=== PATIENT | female | born 1960 | race African-American/Black ===

== ENCOUNTER 2016-05-06 17:22 | Emergency (ER) | payer MEDICAID ==
[~2016-05-06] VITALS: Ht 170.2 cm; Wt 84.0 kg
[2016-05-06] MEDS ORDERED: KETOROLAC 60MG/2ML VIAL IM ONE (19:45)
[2016-05-06 19:52] VITALS: BP 142/91
[2016-05-06 20:01] LABS: CLARITY URINE CLEAR (CLEAR); COLOR URINE YELLOW (YELLOW); GLUCOSE URINE NEGATIVE (NEGATIVE); KETONES URINE NEGATIVE (NEGATIVE); LEUKOCYTE ESTERASE URINE NEGATIVE (NEGATIVE); NITRITE URINE NEGATIVE (NEGATIVE); OCCULT BLOOD URINE 2+ (NEGATIVE); PH URINE 5.5 (4.5-8.0); PROTEIN URINE NEGATIVE (NEGATIVE); SPECIFIC GRAVITY URINE 1.029 (1.005-1.030); UROBILINOGEN URINE 0.2 E.U./dL (0.2-1.0)
[2016-05-06 20:16] LABS: BACTERIA URINE 1+; RBC URINE 0-2 /hpf (0-2); SQUAMOUS EPITHELIAL CELL URINE 1+ /lpf (RARE/1+); WBC URINE 0-2 /hpf (0-2)
== END 2016-05-06 20:45 | disposition home or self-care (01) ==
LOC: ER 19:44
DX: M54.5 Low back pain (principal); I10 Essential (primary) hypertension; R10.9 Unspecified abdominal pain
CPT/HCPCS: 81001; 96372; 99283; J1885

== ENCOUNTER 2019-09-07 19:59 | Inpatient (IN) | payer MEDICARE, MEDICAID ==
[~2019-09-07] VITALS: Ht 170.2 cm; Wt 97.1 kg
[2019-09-07] MEDS ORDERED: SODIUM CHLORIDE 0.9% 1,000 ML IV ONE (20:30)
[2019-09-07] MEDS ORDERED: ACETAMINOPHEN 325MG TABLET PO ONE (21:00)
[2019-09-07 21:18] LABS: BASOPHILS % 0.4 % (0.0-2.0); HEMATOCRIT. 41.3 % (36.0-48.0); HEMOGLOBIN. 14.4 g/dL (12.0-16.0); LYMPHOCYTES % 20.4 % (20.0-50.0); MEAN CORPUSCULAR HEMOGLOBIN 31.7 pg (28.0-32.0); MEAN PLATELET VOLUME 8.8 fl (7.4-10.4); MONOCYTES % 10.9 % (2.0-8.0); NEUTROPHILS % 68.3 % (40.0-76.0); PLATELET 215 x1000/uL (130-400); RED BLOOD CELL COUNT 4.54 mill/uL (4.2-5.4); RED CELL DISTRIBUTION WIDTH 13.4 % (11.6-14.6)
[2019-09-07 21:26] LABS: D-DIMER 0.55 mg/L FEU (<0.50); PROTHROMBIN TIME 10.5 sec (9.6-11.0)
[2019-09-07] MEDS ORDERED: PIPERACILLIN/TAZ 3.375G PREMIX 50 ML IV ONE (21:30)
[2019-09-07 21:33] LABS: CHLORIDE 106 mEq/L (98-107)
[2019-09-08] MEDS ORDERED: QUET50TA21 PO (03:53)
[2019-09-08] MEDS ORDERED: RAMI10CA68 PO (03:53)
[2019-09-08] MEDS ORDERED: AMLO5TAB88 PO (03:53)
[2019-09-08] MEDS ORDERED: HYDR-4009 PO (03:53)
[2019-09-08] MEDS ORDERED: NAPR-681 PO (03:53)
[2019-09-08] MEDS ORDERED: OMEP20CA14 PO (03:53)
[2019-09-08 04:00] VITALS: BP 112/71
[2019-09-08] MEDS ORDERED: HYDROCODONE/ACETAMINOPHEN 10/325MG TABLET PO PRN (04:15)
[2019-09-08 08:00] VITALS: BP 89/55
[2019-09-08] MEDS: OMEPRAZOLE 20MG CAPSULE EXTENDED RELEASE PO SCH (08:24)
[2019-09-08] MEDS ORDERED: AMLODIPINE 5MG TABLET PO SCH (09:00)
[2019-09-08] MEDS ORDERED: DEXAMETHASONE 2MG TABLET PO SCH (09:00)
[2019-09-08] MEDS: AZITHROMYCIN 500 MG TABLET PO SCH (09:19)
[2019-09-08] MEDS: CEFTRIAXONE 1,000 MG in DEXTROSE 5% WATER 50 ML IV SCH (10:18)
[2019-09-08 12:00] VITALS: BP 114/79
[2019-09-08] MEDS: ACETAMINOPHEN 325MG TABLET PO PRN (13:48)
[2019-09-08] MEDS: BENZONATATE 100MG CAPSULE PO PRN (15:34)
[2019-09-08 15:54] LABS: BASOPHILS % 0.3 % (0.0-2.0); HEMATOCRIT. 37.5 % (36.0-48.0); HEMOGLOBIN. 13.1 g/dL (12.0-16.0); LYMPHOCYTES % 12.5 % (20.0-50.0); MEAN CORPUSCULAR HEMOGLOBIN 31.7 pg (28.0-32.0); MEAN PLATELET VOLUME 8.4 fl (7.4-10.4); NEUTROPHILS % 82.2 % (40.0-76.0); PLATELET 204 x1000/uL (130-400); RED BLOOD CELL COUNT 4.12 mill/uL (4.2-5.4); RED CELL DISTRIBUTION WIDTH 13.2 % (11.6-14.6)
[2019-09-08 16:00] VITALS: BP 113/77
[2019-09-08 16:05] LABS: CHLORIDE 109 mEq/L (98-107)
[2019-09-08] MEDS ORDERED: DEXAMETHASONE 4MG TABLET PO SCH (16:48)
[2019-09-08] MEDS: ENOXAPARIN 80MG/0.8ML SYR SUBCUT SCH (17:19)
[2019-09-08 18:18] LABS: CLARITY URINE CLEAR (CLEAR); COLOR URINE DARK YELLOW (YELLOW); KETONES URINE NEGATIVE (NEGATIVE); LEUKOCYTE ESTERASE URINE NEGATIVE (NEGATIVE); NITRITE URINE NEGATIVE (NEGATIVE); OCCULT BLOOD URINE TRACE (NEGATIVE); PH URINE 5.5 (4.5-8.0); PROTEIN URINE 2+ (NEGATIVE); SPECIFIC GRAVITY URINE 1.025 (1.005-1.030)
[2019-09-08 18:28] LABS: *AMPHETAMINES SCREEN URINE NEGATIVE (NEGATIVE); *BARBITURATES SCREEN URINE NEGATIVE (NEGATIVE); *BENZODIAZEPINES SCREEN URINE NEGATIVE (NEGATIVE); *COCAINE SCREEN URINE NEGATIVE (NEGATIVE); METHADONE URINE SCREEN NEGATIVE (NEGATIVE); OPIATES URINE SCREEN NEGATIVE (NEGATIVE); PHENCYCLIDINE URINE SCREEN NEGATIVE (NEGATIVE)
[2019-09-08 18:29] LABS: CANNABINOID URINE SCREEN NEGATIVE (NEGATIVE)
[2019-09-08 20:00] VITALS: BP 119/84
[2019-09-08] MEDS: QUETIAPINE FUMARATE 50MG TABLET PO SCH (20:57)
[2019-09-09] VITALS: BP 123/80
[2019-09-09 04:00] VITALS: BP 108/71
[2019-09-09] MEDS: ENOXAPARIN 80MG/0.8ML SYR SUBCUT SCH ×2 (06:14→18:17)
[2019-09-09 08:00] VITALS: BP 118/82
[2019-09-09] MEDS: OMEPRAZOLE 20MG CAPSULE EXTENDED RELEASE PO SCH (08:48)
[2019-09-09] MEDS: AZITHROMYCIN 500 MG TABLET PO SCH (08:49)
[2019-09-09] MEDS: DEXAMETHASONE 4MG TABLET PO SCH (08:49)
[2019-09-09] MEDS: BENZONATATE 100MG CAPSULE PO PRN (10:57)
[2019-09-09 12:00] VITALS: BP 130/86
[2019-09-09] MEDS: CEFTRIAXONE 1,000 MG in DEXTROSE 5% WATER 50 ML IV SCH (12:05)
[2019-09-09 20:00] VITALS: BP 134/87
[2019-09-09] MEDS: QUETIAPINE FUMARATE 50MG TABLET PO SCH (20:36)
[2019-09-10] VITALS: BP 125/86
[2019-09-10 04:00] VITALS: BP 120/74
[2019-09-10] MEDS: ENOXAPARIN 80MG/0.8ML SYR SUBCUT SCH ×2 (06:41→18:44)
[2019-09-10 08:00] VITALS: BP 126/85
[2019-09-10] MEDS: OMEPRAZOLE 20MG CAPSULE EXTENDED RELEASE PO SCH (08:25)
[2019-09-10] MEDS: AZITHROMYCIN 500 MG TABLET PO SCH (08:26)
[2019-09-10] MEDS: DEXAMETHASONE 4MG TABLET PO SCH (08:28)
[2019-09-10] MEDS: CEFTRIAXONE 1,000 MG in DEXTROSE 5% WATER 50 ML IV SCH (08:55)
[2019-09-10] MEDS: DIPHENHYDRAMINE 50MG CAPSULE PO PRN (09:39)
[2019-09-10 12:00] VITALS: BP 125/88
[2019-09-10 16:00] VITALS: BP 138/89
[2019-09-10 20:00] VITALS: BP 148/88
[2019-09-10] MEDS: QUETIAPINE FUMARATE 50MG TABLET PO SCH (20:09)
[2019-09-10 20:28] LABS: CHLORIDE 109 mEq/L (98-107)
[2019-09-10 20:40] LABS: BASOPHILS % 0.1 % (0.0-2.0); HEMATOCRIT. 37.2 % (36.0-48.0); LYMPHOCYTES % 7.1 % (20.0-50.0); MEAN CORPUSCULAR HEMOGLOBIN 31.8 pg (28.0-32.0); MEAN CORPUSCULAR VOLUME 91.1 fL (81.0-99.0); MEAN PLATELET VOLUME 8.5 fl (7.4-10.4); MONOCYTES % 8.2 % (2.0-8.0); NEUTROPHILS % 84.6 % (40.0-76.0); PLATELET 255 x1000/uL (130-400); RED BLOOD CELL COUNT 4.08 mill/uL (4.2-5.4); RED CELL DISTRIBUTION WIDTH 13.4 % (11.6-14.6)
[2019-09-11] VITALS (7 sets, daily range): BP systolic 91–155; BP diastolic 67–98
[2019-09-11] MEDS: OMEPRAZOLE 20MG CAPSULE EXTENDED RELEASE PO SCH (06:41)
[2019-09-11] MEDS: ENOXAPARIN 80MG/0.8ML SYR SUBCUT SCH ×2 (06:41→17:04)
[2019-09-11] MEDS: CEFTRIAXONE 1,000 MG in DEXTROSE 5% WATER 50 ML IV SCH (08:30)
[2019-09-11] MEDS: AZITHROMYCIN 500 MG TABLET PO SCH (08:31)
[2019-09-11] MEDS: DEXAMETHASONE 4MG TABLET PO SCH (08:31)
[2019-09-11 12:47] LABS: BG CARBOXYHEMOGLOBIN 0.5 % (0.5-1.5); BG DEOXYHEMOGLOBIN 9.9 % (0.0-5.0); BG FRACTION INSPIRED OXYGEN 99.8; BG HCO3 ACT 24.2 mmol/L (22.0-26.0); BG METHEMOGLOBIN 0.3 % (0.0-1.5); BG OXYHEMOGLOBIN 89.3 % (94.0-97.0); BG PCO2 38.3 mmHg (35.0-45.0); BG PH 7.419 (7.350-7.450); BG PO2 61.6 mmHg (75.0-100.0); BG SAMPLE SITE RIGHT BRACHIAL; BG TOTAL HEMOGLOBIN 14.2 g/dL (12.0-18.0); BG VENT MODE MASK - NRB
[2019-09-11] MEDS ORDERED: REMDESIVIR 200 MG in SODIUM CHLORIDE 0.9% 250 ML IV NR (14:00)
[2019-09-11] MEDS ORDERED: CLONIDINE 0.1MG TABLET PO PRN (17:00)
[2019-09-11] MEDS: AMLODIPINE 10MG TABLET PO SCH (17:04)
[2019-09-11] MEDS: QUETIAPINE FUMARATE 50MG TABLET PO SCH (21:44)
[2019-09-12] VITALS: BP 125/82
[2019-09-12 04:00] VITALS: BP 123/78
[2019-09-12] MEDS: ENOXAPARIN 80MG/0.8ML SYR SUBCUT SCH ×2 (05:31→17:27)
[2019-09-12 08:00] VITALS: BP 134/91
[2019-09-12] MEDS: AZITHROMYCIN 500 MG TABLET PO SCH (08:30)
[2019-09-12] MEDS: FAMOTIDINE 20MG TABLET PO SCH ×2 (08:31→17:26)
[2019-09-12] MEDS: DEXAMETHASONE 4MG TABLET PO SCH (08:31)
[2019-09-12] MEDS: AMLODIPINE 10MG TABLET PO SCH (08:31)
[2019-09-12] MEDS: CEFTRIAXONE 1,000 MG in DEXTROSE 5% WATER 50 ML IV SCH (08:31)
[2019-09-12 12:00] VITALS: BP 111/84
[2019-09-12] MEDS: REMDESIVIR 100 MG in SODIUM CHLORIDE 0.9% 250 ML IV SCH (13:52)
[2019-09-12] MEDS: ALBUTEROL 6.7GM HFA INHALER ORI SCH ×2 (13:52→17:28)
[2019-09-12 16:00] VITALS: BP 133/94
[2019-09-12] MEDS: QUETIAPINE FUMARATE 50MG TABLET PO SCH (20:26)
[2019-09-12 20:42] VITALS: BP 130/87
[2019-09-13] VITALS (23 sets, daily range): BP systolic 111–164; BP diastolic 70–97
[2019-09-13] MEDS: ALBUTEROL 6.7GM HFA INHALER ORI SCH ×2 (00:08→05:35)
[2019-09-13] MEDS: ENOXAPARIN 80MG/0.8ML SYR SUBCUT SCH ×2 (05:34→17:17)
[2019-09-13] MEDS: FAMOTIDINE 20MG TABLET PO SCH ×2 (07:40→17:16)
[2019-09-13] MEDS: CEFTRIAXONE 1,000 MG in DEXTROSE 5% WATER 50 ML IV SCH (08:30)
[2019-09-13] MEDS: DEXAMETHASONE 4MG TABLET PO SCH (08:55)
[2019-09-13] MEDS: AZITHROMYCIN 500 MG TABLET PO SCH (08:56)
[2019-09-13] MEDS: AMLODIPINE 10MG TABLET PO SCH (08:56)
[2019-09-13 10:01] LABS: BG BASE EXCESS 0.4 mmol/L (-2.0-2.0); BG CARBOXYHEMOGLOBIN 0.7 % (0.5-1.5); BG DEOXYHEMOGLOBIN 17.3 % (0.0-5.0); BG FRACTION INSPIRED OXYGEN 99.8; BG HCO3 ACT 23.6 mmol/L (22.0-26.0); BG METHEMOGLOBIN 0.3 % (0.0-1.5); BG OXYGEN SATURATION 82.5 % (92.0-98.5); BG OXYHEMOGLOBIN 81.7 % (94.0-97.0); BG PO2 46.2 mmHg (75.0-100.0); BG SAMPLE SITE RIGHT RADIAL; BG TOTAL HEMOGLOBIN 14.6 g/dL (12.0-18.0); BG VENT MODE MASK - NRB
[2019-09-13] MEDS ORDERED: ALBUTEROL 6.7GM HFA INHALER ORI SCH (12:00)
[2019-09-13] MEDS: REMDESIVIR 100 MG in SODIUM CHLORIDE 0.9% 250 ML IV SCH (15:04)
[2019-09-13] MEDS: QUETIAPINE FUMARATE 50MG TABLET PO SCH (20:15)
[2019-09-13] MEDS: BENZONATATE 100MG CAPSULE PO PRN (21:41)
[2019-09-14] VITALS (42 sets, daily range): BP systolic 100–141; BP diastolic 63–96
[2019-09-14] MEDS: ENOXAPARIN 80MG/0.8ML SYR SUBCUT SCH ×2 (05:35→17:01)
[2019-09-14] MEDS: BENZONATATE 100MG CAPSULE PO PRN (05:35)
[2019-09-14] MEDS: FAMOTIDINE 20MG TABLET PO SCH ×2 (05:35→17:01)
[2019-09-14] MEDS: DEXAMETHASONE 4MG TABLET PO SCH (08:00)
[2019-09-14] MEDS: AMLODIPINE 10MG TABLET PO SCH (08:00)
[2019-09-14] MEDS ORDERED: FUROSEMIDE 40MG/4ML VIAL IVP SCH (13:30)
[2019-09-14] MEDS: REMDESIVIR 100 MG in SODIUM CHLORIDE 0.9% 250 ML IV SCH (14:08)
[2019-09-14] MEDS: QUETIAPINE FUMARATE 50MG TABLET PO SCH (21:30)
[2019-09-15] VITALS (37 sets, daily range): BP systolic 86–138; BP diastolic 34–81
[2019-09-15] MEDS: ACETAMINOPHEN 325MG TABLET PO PRN (01:43)
[2019-09-15] MEDS: ENOXAPARIN 80MG/0.8ML SYR SUBCUT SCH ×2 (06:44→16:36)
[2019-09-15] MEDS: FAMOTIDINE 20MG TABLET PO SCH ×2 (06:44→16:37)
[2019-09-15] MEDS: DEXAMETHASONE 4MG TABLET PO SCH (09:30)
[2019-09-15] MEDS: AMLODIPINE 10MG TABLET PO SCH (09:30)
[2019-09-15 09:36] LABS: BG BASE EXCESS 3.3 mmol/L (-2.0-2.0); BG CARBOXYHEMOGLOBIN 0.4 % (0.5-1.5); BG DEOXYHEMOGLOBIN 14.4 % (0.0-5.0); BG FRACTION INSPIRED OXYGEN 100; BG METHEMOGLOBIN 0.3 % (0.0-1.5); BG OXYGEN SATURATION 85.5 % (92.0-98.5); BG OXYHEMOGLOBIN 84.9 % (94.0-97.0); BG PCO2 38.1 mmHg (35.0-45.0); BG PH 7.468 (7.350-7.450); BG PO2 49.6 mmHg (75.0-100.0); BG SAMPLE SITE RIGHT RADIAL; BG VENT MODE MASK - NRB
[2019-09-15] MEDS ORDERED: FUROSEMIDE 40MG/4ML VIAL IVP SCH (10:45)
[2019-09-15] MEDS: REMDESIVIR 100 MG in SODIUM CHLORIDE 0.9% 250 ML IV SCH (13:05)
[2019-09-15 20:26] LABS: CHLORIDE 98 mEq/L (98-107)
[2019-09-15 20:33] LABS: HEMATOCRIT. 43.2 % (36.0-48.0); HEMOGLOBIN. 14.5 g/dL (12.0-16.0); MEAN CORPUSCULAR VOLUME 92.7 fL (81.0-99.0); MEAN PLATELET VOLUME 8.1 fl (7.4-10.4); PLATELET 583 x1000/uL (130-400); RED BLOOD CELL COUNT 4.66 mill/uL (4.2-5.4); RED CELL DISTRIBUTION WIDTH 12.8 % (11.6-14.6)
[2019-09-15] MEDS: QUETIAPINE FUMARATE 50MG TABLET PO SCH (20:33)
[2019-09-15 22:57] LABS: PLATELET ESTIMATE INCREASED
[2019-09-16] VITALS (72 sets, daily range): BP systolic 89–156; BP diastolic 51–93
[2019-09-16] MEDS: FAMOTIDINE 20MG TABLET PO SCH ×2 (06:12→16:00)
[2019-09-16] MEDS: ENOXAPARIN 80MG/0.8ML SYR SUBCUT SCH ×2 (06:12→17:11)
[2019-09-16] MEDS: BENZONATATE 100MG CAPSULE PO PRN ×3 (06:14→20:52)
[2019-09-16] MEDS: DEXAMETHASONE 4MG TABLET PO SCH (08:56)
[2019-09-16] MEDS: AMLODIPINE 10MG TABLET PO SCH (08:56)
[2019-09-16 09:05] LABS: BG BASE EXCESS 7.9 mmol/L (-2.0-2.0); BG CARBOXYHEMOGLOBIN 0.9 % (0.5-1.5); BG DEOXYHEMOGLOBIN 15.7 % (0.0-5.0); BG FRACTION INSPIRED OXYGEN 100; BG HCO3 ACT 32.8 mmol/L (22.0-26.0); BG METHEMOGLOBIN 0.4 % (0.0-1.5); BG OXYGEN SATURATION 84.1 % (92.0-98.5); BG PCO2 46.5 mmHg (35.0-45.0); BG PH 7.466 (7.350-7.450); BG PO2 48.1 mmHg (75.0-100.0); BG SAMPLE SITE RIGHT RADIAL; BG VENT MODE MASK - NRB
[2019-09-16] MEDS ORDERED: DEXTROSE 50% WATER 50ML SYRINGE IV PRN (10:00)
[2019-09-16] MEDS: BLOOD SUGAR DIAGNOSTIC STRIP TEST SCH ×3 (11:30→20:53)
[2019-09-16] MEDS: INSULIN LISPRO 100 UNITS/ML SUBCUT SCH ×3 (14:26→20:52)
[2019-09-16] MEDS: QUETIAPINE FUMARATE 50MG TABLET PO SCH (20:52)
[2019-09-17] VITALS (39 sets, daily range): BP systolic 100–155; BP diastolic 56–109
[2019-09-17] MEDS: DIPHENHYDRAMINE 50MG CAPSULE PO PRN (00:15)
[2019-09-17 04:57] LABS: HEMATOCRIT. 41.1 % (36.0-48.0); HEMOGLOBIN. 13.8 g/dL (12.0-16.0); MEAN CORPUSCULAR HEMOGLOBIN 30.5 pg (28.0-32.0); PLATELET 503 x1000/uL (130-400); RED BLOOD CELL COUNT 4.51 mill/uL (4.2-5.4); RED CELL DISTRIBUTION WIDTH 12.9 % (11.6-14.6)
[2019-09-17 05:10] LABS: CHLORIDE 102 mEq/L (98-107)
[2019-09-17] MEDS: BLOOD SUGAR DIAGNOSTIC STRIP TEST SCH ×4 (05:55→21:32)
[2019-09-17] MEDS: ENOXAPARIN 80MG/0.8ML SYR SUBCUT SCH (06:05)
[2019-09-17] MEDS: BENZONATATE 100MG CAPSULE PO PRN (06:05)
[2019-09-17] MEDS: FAMOTIDINE 20MG TABLET PO SCH ×2 (06:07→16:21)
[2019-09-17] MEDS: DOCUSATE SODIUM 100MG CAPSULE PO SCH ×2 (08:14→16:21)
[2019-09-17] MEDS: AMLODIPINE 10MG TABLET PO SCH (08:14)
[2019-09-17] MEDS: DEXAMETHASONE 4MG TABLET PO SCH (08:15)
[2019-09-17] MEDS: INSULIN LISPRO 100 UNITS/ML SUBCUT SCH ×4 (08:18→21:33)
[2019-09-17 09:37] LABS: PLATELET ESTIMATE INCREASED
[2019-09-17 10:32] LABS: BG BASE EXCESS 2.1 mmol/L (-2.0-2.0); BG CARBOXYHEMOGLOBIN 0.9 % (0.5-1.5); BG DEOXYHEMOGLOBIN 19.2 % (0.0-5.0); BG FRACTION INSPIRED OXYGEN 100; BG HCO3 ACT 25.5 mmol/L (22.0-26.0); BG METHEMOGLOBIN 0.2 % (0.0-1.5); BG OXYGEN SATURATION 80.6 % (92.0-98.5); BG OXYHEMOGLOBIN 79.7 % (94.0-97.0); BG PCO2 36.3 mmHg (35.0-45.0); BG PH 7.465 (7.350-7.450); BG PO2 45.2 mmHg (75.0-100.0); BG SAMPLE SITE RIGHT RADIAL; BG VENT MODE MASK - NRB
[2019-09-17] MEDS ORDERED: INSULIN GLARGINE UD 100 UNITS/ML SYR SUBCUT NR (14:00)
[2019-09-17] MEDS: ENOXAPARIN 100MG/ML SYR SUBCUT SCH (17:03)
[2019-09-17] MEDS: QUETIAPINE FUMARATE 50MG TABLET PO SCH (21:32)
[2019-09-17] MEDS ORDERED: INSULIN GLARGINE UD 100 UNITS/ML SYR SUBCUT SCH (22:00)
[2019-09-18] VITALS (77 sets, daily range): BP systolic 53–154; BP diastolic 32–114
[2019-09-18] MEDS: BENZONATATE 100MG CAPSULE PO PRN (02:20)
[2019-09-18] MEDS: ENOXAPARIN 100MG/ML SYR SUBCUT SCH ×2 (05:47→17:38)
[2019-09-18] MEDS: INSULIN LISPRO 100 UNITS/ML SUBCUT SCH ×4 (05:47→20:38)
[2019-09-18] MEDS: BLOOD SUGAR DIAGNOSTIC STRIP TEST SCH ×4 (05:47→20:37)
[2019-09-18] MEDS: FAMOTIDINE 20MG TABLET PO SCH ×2 (05:47→16:04)
[2019-09-18] MEDS: DEXAMETHASONE 4MG/ML 1ML VIAL IV SCH (08:32)
[2019-09-18] MEDS: DOCUSATE SODIUM 100MG CAPSULE PO SCH ×2 (08:32→16:34)
[2019-09-18] MEDS: AMLODIPINE 10MG TABLET PO SCH (08:33)
[2019-09-18 09:59] LABS: BG BASE EXCESS 6.1 mmol/L (-2.0-2.0); BG CARBOXYHEMOGLOBIN 0.6 % (0.5-1.5); BG DEOXYHEMOGLOBIN 26.3 % (0.0-5.0); BG FRACTION INSPIRED OXYGEN 100; BG HCO3 ACT 30.4 mmol/L (22.0-26.0); BG METHEMOGLOBIN 0.3 % (0.0-1.5); BG OXYGEN SATURATION 73.5 % (92.0-98.5); BG OXYHEMOGLOBIN 72.8 % (94.0-97.0); BG PCO2 42.7 mmHg (35.0-45.0); BG PH 7.471 (7.350-7.450); BG SAMPLE SITE RIGHT RADIAL; BG TOTAL HEMOGLOBIN 15.9 g/dL (12.0-18.0); BG VENT MODE MASK - NRB
[2019-09-18] MEDS: PROPOFOL 10MG/ML 100ML 100 ML IV PRN ×3 (11:10→21:00)
[2019-09-18] MEDS ORDERED: DILTIAZEM HCL 30MG TABLET PO NR (11:45)
[2019-09-18 12:08] LABS: BG BASE EXCESS 1.9 mmol/L (-2.0-2.0); BG CARBOXYHEMOGLOBIN 0.7 % (0.5-1.5); BG DEOXYHEMOGLOBIN 5.7 % (0.0-5.0); BG FRACTION INSPIRED OXYGEN 100; BG HCO3 ACT 27.9 mmol/L (22.0-26.0); BG METHEMOGLOBIN 0.3 % (0.0-1.5); BG OXYGEN SATURATION 94.2 % (92.0-98.5); BG OXYHEMOGLOBIN 93.3 % (94.0-97.0); BG PCO2 49.1 mmHg (35.0-45.0); BG PH 7.373 (7.350-7.450); BG PO2 78.7 mmHg (75.0-100.0); BG SAMPLE SITE RIGHT RADIAL; BG TIDAL VOLUME(mL) 500 mL; BG TOTAL HEMOGLOBIN 14.9 g/dL (12.0-18.0); BG VENT MODE VENT- PRVC; BG VENT RATE 20 set
[2019-09-18] MEDS: INSULIN GLARGINE UD 100 UNITS/ML SYR SUBCUT SCH ×2 (12:33→22:15)
[2019-09-18] MEDS: IPRATROPIUM/ALBUTEROL 0.5-3(2.5)MG/3ML NEB HHN SCH ×2 (16:25→20:55)
[2019-09-18] MEDS: DILTIAZEM HCL 30MG TABLET PO SCH ×2 (17:38→23:39)
[2019-09-18] MEDS: QUETIAPINE FUMARATE 50MG TABLET PO SCH (20:37)
[2019-09-18] MEDS: PHENYLEPHRINE 20 MG in DEXT 5% WATER 248 ML IV PRN (21:38)
[2019-09-19] VITALS (90 sets, daily range): BP systolic 66–147; BP diastolic 45–84
[2019-09-19] MEDS: PHENYLEPHRINE 20 MG in DEXT 5% WATER 248 ML IV PRN (00:07)
[2019-09-19] MEDS: PROPOFOL 10MG/ML 100ML 100 ML IV PRN ×3 (00:25→08:24)
[2019-09-19] MEDS: IPRATROPIUM/ALBUTEROL 0.5-3(2.5)MG/3ML NEB HHN SCH ×4 (01:43→20:44)
[2019-09-19] MEDS: PHENYLEPHRINE 40 MG in DEXT 5% WATER 246 ML IV PRN ×2 (02:37→10:07)
[2019-09-19] MEDS: DILTIAZEM HCL 30MG TABLET PO SCH ×5 (05:37→23:51)
[2019-09-19 05:56] LABS: HEMATOCRIT. 41.8 % (36.0-48.0); HEMOGLOBIN. 14.1 g/dL (12.0-16.0); MEAN CORPUSCULAR HEMOGLOBIN 31.2 pg (28.0-32.0); MEAN CORPUSCULAR VOLUME 92.6 fL (81.0-99.0); MEAN PLATELET VOLUME 8.2 fl (7.4-10.4); PLATELET 460 x1000/uL (130-400); RED BLOOD CELL COUNT 4.51 mill/uL (4.2-5.4)
[2019-09-19] MEDS: ENOXAPARIN 100MG/ML SYR SUBCUT SCH ×2 (06:13→17:34)
[2019-09-19] MEDS: FAMOTIDINE 20MG TABLET PO SCH ×2 (06:13→17:33)
[2019-09-19] MEDS: BLOOD SUGAR DIAGNOSTIC STRIP TEST SCH ×4 (06:14→21:09)
[2019-09-19] MEDS: INSULIN LISPRO 100 UNITS/ML SUBCUT SCH ×4 (06:14→21:07)
[2019-09-19 08:37] LABS: BG BASE EXCESS 3.4 mmol/L (-2.0-2.0); BG CARBOXYHEMOGLOBIN 0.3 % (0.5-1.5); BG DEOXYHEMOGLOBIN 3.7 % (0.0-5.0); BG FRACTION INSPIRED OXYGEN 90; BG HCO3 ACT 28.9 mmol/L (22.0-26.0); BG METHEMOGLOBIN 0.2 % (0.0-1.5); BG OXYGEN SATURATION 96.3 % (92.0-98.5); BG OXYHEMOGLOBIN 95.8 % (94.0-97.0); BG PCO2 46.9 mmHg (35.0-45.0); BG PH 7.407 (7.350-7.450); BG PO2 84.8 mmHg (75.0-100.0); BG SAMPLE SITE RIGHT RADIAL; BG TIDAL VOLUME(mL) 450 mL; BG TOTAL HEMOGLOBIN 14.7 g/dL (12.0-18.0); BG VENT MODE VENT- PRVC; BG VENT RATE 20 set
[2019-09-19] MEDS: DEXAMETHASONE 4MG/ML 1ML VIAL IV SCH (08:47)
[2019-09-19] MEDS: DOCUSATE SODIUM 100MG CAPSULE PO SCH ×2 (08:47→17:33)
[2019-09-19] MEDS: INSULIN GLARGINE UD 100 UNITS/ML SYR SUBCUT SCH (10:02)
[2019-09-19] MEDS: SODIUM CHLORIDE 0.9% 1,000 ML IV SCH (11:42)
[2019-09-19] MEDS: PIPERACILLIN/TAZOBACTAM 3.375 G in DEXT 5% WATER 100 ML IV SCH ×3 (12:00→23:48)
[2019-09-19] MEDS ORDERED: DILTIAZEM HCL 60MG TABLET PO SCH (12:00)
[2019-09-19] MEDS: MIDODRINE HCL 5MG TABLET PO SCH ×2 (12:08→17:33)
[2019-09-19] MEDS: MIDAZOLAM HCL 100 MG in DEXT 5% WATER 80 ML IV PRN (12:40)
[2019-09-19 14:23] LABS: PLATELET ESTIMATE INCREASED
[2019-09-19] MEDS: FENTANYL CITRATE/PF 1,000 MCG in SODIUM CHLORIDE 0.9% 80 ML IV PRN (15:22)
[2019-09-19] MEDS: QUETIAPINE FUMARATE 50MG TABLET PO SCH (21:05)
[2019-09-19] MEDS ORDERED: INSULIN GLARGINE UD 100 UNITS/ML SYR SUBCUT SCH (22:00)
[2019-09-20] VITALS (85 sets, daily range): BP systolic 93–138; BP diastolic 56–87
[2019-09-20] MEDS: IPRATROPIUM/ALBUTEROL 0.5-3(2.5)MG/3ML NEB HHN SCH ×3 (01:26→15:24)
[2019-09-20] MEDS: MIDAZOLAM HCL 100 MG in DEXT 5% WATER 80 ML IV PRN ×2 (03:55→21:10)
[2019-09-20 05:36] LABS: HEMATOCRIT. 38.2 % (36.0-48.0); HEMOGLOBIN. 12.6 g/dL (12.0-16.0); MEAN CORPUSCULAR HEMOGLOBIN 30.6 pg (28.0-32.0); MEAN PLATELET VOLUME 8.4 fl (7.4-10.4); PLATELET 333 x1000/uL (130-400); RED CELL DISTRIBUTION WIDTH 12.8 % (11.6-14.6)
[2019-09-20 05:39] LABS: CHLORIDE 102 mEq/L (98-107)
[2019-09-20] MEDS: DILTIAZEM HCL 30MG TABLET PO SCH ×4 (06:00→23:29)
[2019-09-20] MEDS: ENOXAPARIN 100MG/ML SYR SUBCUT SCH ×2 (06:00→17:35)
[2019-09-20] MEDS: SODIUM CHLORIDE 0.9% 1,000 ML IV SCH (06:45)
[2019-09-20] MEDS: FAMOTIDINE 20MG TABLET PO SCH ×2 (07:04→17:31)
[2019-09-20] MEDS: BLOOD SUGAR DIAGNOSTIC STRIP TEST SCH ×4 (07:08→21:18)
[2019-09-20] MEDS: PIPERACILLIN/TAZOBACTAM 3.375 G in DEXT 5% WATER 100 ML IV SCH ×4 (07:09→23:30)
[2019-09-20] MEDS: PHENYLEPHRINE 40 MG in DEXT 5% WATER 246 ML IV PRN ×2 (07:30→21:52)
[2019-09-20] MEDS: INSULIN LISPRO 100 UNITS/ML SUBCUT SCH ×4 (07:44→21:18)
[2019-09-20] MEDS: DOCUSATE SODIUM 100MG CAPSULE PO SCH ×2 (08:34→17:31)
[2019-09-20] MEDS: DEXAMETHASONE 4MG/ML 1ML VIAL IV SCH (08:34)
[2019-09-20] MEDS: MIDODRINE HCL 5MG TABLET PO SCH ×3 (08:35→17:32)
[2019-09-20 08:38] LABS: PLATELET ESTIMATE NORMAL
[2019-09-20 09:37] LABS: BG CARBOXYHEMOGLOBIN 0.3 % (0.5-1.5); BG DEOXYHEMOGLOBIN 8.2 % (0.0-5.0); BG FRACTION INSPIRED OXYGEN 60; BG HCO3 ACT 26.9 mmol/L (22.0-26.0); BG METHEMOGLOBIN 0.3 % (0.0-1.5); BG OXYGEN SATURATION 91.8 % (92.0-98.5); BG OXYHEMOGLOBIN 91.2 % (94.0-97.0); BG PCO2 43.1 mmHg (35.0-45.0); BG PH 7.413 (7.350-7.450); BG PO2 61.3 mmHg (75.0-100.0); BG SAMPLE SITE RIGHT RADIAL; BG TIDAL VOLUME(mL) 450 mL; BG TOTAL HEMOGLOBIN 12.8 g/dL (12.0-18.0); BG VENT MODE VENT- PRVC; BG VENT RATE 20 set
[2019-09-20] MEDS: INSULIN GLARGINE UD 100 UNITS/ML SYR SUBCUT SCH ×2 (12:16→21:35)
[2019-09-20 14:43] LABS: CLARITY URINE TURBID (CLEAR); COLOR URINE YELLOW (YELLOW); KETONES URINE NEGATIVE (NEGATIVE); LEUKOCYTE ESTERASE URINE NEGATIVE (NEGATIVE); NITRITE URINE NEGATIVE (NEGATIVE); OCCULT BLOOD URINE 3+ (NEGATIVE); PH URINE 5.5 (4.5-8.0); PROTEIN URINE 1+ (NEGATIVE); SPECIFIC GRAVITY URINE 1.029 (1.005-1.030); UROBILINOGEN URINE 0.2 E.U./dL (0.2-1.0)
[2019-09-20] MEDS: FENTANYL CITRATE/PF 1,000 MCG in SODIUM CHLORIDE 0.9% 80 ML IV PRN (17:10)
[2019-09-20] MEDS: QUETIAPINE FUMARATE 50MG TABLET PO SCH (20:39)
[2019-09-21] VITALS (100 sets, daily range): BP systolic 77–158; BP diastolic 48–122
[2019-09-21 05:22] LABS: HEMATOCRIT. 42.3 % (36.0-48.0); HEMOGLOBIN. 14.1 g/dL (12.0-16.0); MEAN CORPUSCULAR HEMOGLOBIN 31.6 pg (28.0-32.0); MEAN CORPUSCULAR VOLUME 94.6 fL (81.0-99.0); MEAN PLATELET VOLUME 8.1 fl (7.4-10.4); PLATELET 335 x1000/uL (130-400); RED BLOOD CELL COUNT 4.47 mill/uL (4.2-5.4)
[2019-09-21 05:24] LABS: CHLORIDE 103 mEq/L (98-107)
[2019-09-21] MEDS: PIPERACILLIN/TAZOBACTAM 3.375 G in DEXT 5% WATER 100 ML IV SCH ×4 (05:30→23:35)
[2019-09-21] MEDS: DILTIAZEM HCL 30MG TABLET PO SCH ×4 (06:11→23:36)
[2019-09-21] MEDS: FAMOTIDINE 20MG TABLET PO SCH ×2 (06:11→17:21)
[2019-09-21] MEDS: ENOXAPARIN 100MG/ML SYR SUBCUT SCH ×2 (06:12→17:22)
[2019-09-21] MEDS: BLOOD SUGAR DIAGNOSTIC STRIP TEST SCH ×4 (06:13→21:45)
[2019-09-21] MEDS: INSULIN LISPRO 100 UNITS/ML SUBCUT SCH ×4 (06:47→21:50)
[2019-09-21] MEDS: IPRATROPIUM/ALBUTEROL 0.5-3(2.5)MG/3ML NEB HHN SCH ×2 (08:34→16:12)
[2019-09-21 08:49] LABS: BG BASE EXCESS -0.4 mmol/L (-2.0-2.0); BG CARBOXYHEMOGLOBIN 0.3 % (0.5-1.5); BG DEOXYHEMOGLOBIN 6.4 % (0.0-5.0); BG HCO3 ACT 24.6 mmol/L (22.0-26.0); BG METHEMOGLOBIN 0.3 % (0.0-1.5); BG OXYGEN SATURATION 93.6 % (92.0-98.5); BG PCO2 41.9 mmHg (35.0-45.0); BG PH 7.387 (7.350-7.450); BG PO2 71.7 mmHg (75.0-100.0); BG SAMPLE SITE RIGHT RADIAL; BG TIDAL VOLUME(mL) 450 mL; BG TOTAL HEMOGLOBIN 12.5 g/dL (12.0-18.0); BG VENT MODE VENT - A/C; BG VENT RATE 20 set
[2019-09-21] MEDS: DOCUSATE SODIUM 100MG CAPSULE PO SCH ×2 (08:56→17:21)
[2019-09-21] MEDS: MIDODRINE HCL 5MG TABLET PO SCH ×3 (08:56→17:21)
[2019-09-21] MEDS: DEXAMETHASONE 4MG/ML 1ML VIAL IV SCH (08:56)
[2019-09-21] MEDS ORDERED: SORBITOL 70% SOLN 30ML PO NR (09:30)
[2019-09-21] MEDS: SODIUM CHLORIDE 0.9% 1,000 ML IV SCH (10:00)
[2019-09-21] MEDS: INSULIN GLARGINE UD 100 UNITS/ML SYR SUBCUT SCH ×2 (11:49→22:30)
[2019-09-21] MEDS ORDERED: PROPOFOL 10MG/ML 100ML 100 ML IV PRN (12:45)
[2019-09-21] MEDS: FENTANYL CITRATE/PF 1,000 MCG in SODIUM CHLORIDE 0.9% 80 ML IV PRN (14:00)
[2019-09-21] MEDS: FENTANYL CITRATE/PF 2,500 MCG in SODIUM CHLORIDE 0.9% 200 ML IV PRN (17:11)
[2019-09-21] MEDS: MIDAZOLAM HCL 100 MG in DEXT 5% WATER 80 ML IV PRN (17:11)
[2019-09-21 17:26] LABS: PLATELET ESTIMATE NORMAL
[2019-09-21] MEDS: QUETIAPINE FUMARATE 50MG TABLET PO SCH (21:45)
[2019-09-21] MEDS: PHENYLEPHRINE 40 MG in DEXT 5% WATER 246 ML IV PRN (23:50)
[2019-09-22] VITALS (96 sets, daily range): BP systolic 81–160; BP diastolic 53–104
[2019-09-22] MEDS: FENTANYL CITRATE/PF 2,500 MCG in SODIUM CHLORIDE 0.9% 200 ML IV PRN ×2 (03:02→22:22)
[2019-09-22] MEDS: SODIUM CHLORIDE 0.9% 1,000 ML IV SCH ×2 (03:34→18:22)
[2019-09-22] MEDS: PHENYLEPHRINE 40 MG in DEXT 5% WATER 246 ML IV PRN ×4 (05:09→22:23)
[2019-09-22 05:20] LABS: CHLORIDE 103 mEq/L (98-107)
[2019-09-22 05:23] LABS: HEMATOCRIT. 34.9 % (36.0-48.0); HEMOGLOBIN. 11.5 g/dL (12.0-16.0); MEAN CORPUSCULAR VOLUME 94.5 fL (81.0-99.0); MEAN PLATELET VOLUME 8.5 fl (7.4-10.4); PLATELET 396 x1000/uL (130-400)
[2019-09-22] MEDS: PIPERACILLIN/TAZOBACTAM 3.375 G in DEXT 5% WATER 100 ML IV SCH ×4 (05:28→23:10)
[2019-09-22] MEDS: FAMOTIDINE 20MG TABLET PO SCH ×2 (05:37→16:27)
[2019-09-22] MEDS: DILTIAZEM HCL 30MG TABLET PO SCH ×5 (05:37→23:12)
[2019-09-22] MEDS: BLOOD SUGAR DIAGNOSTIC STRIP TEST SCH ×4 (06:09→20:08)
[2019-09-22] MEDS: INSULIN LISPRO 100 UNITS/ML SUBCUT SCH ×4 (06:30→20:33)
[2019-09-22] MEDS: ENOXAPARIN 100MG/ML SYR SUBCUT SCH ×2 (06:33→18:00)
[2019-09-22] MEDS: DEXAMETHASONE 4MG/ML 1ML VIAL IV SCH (08:01)
[2019-09-22] MEDS: DOCUSATE SODIUM 100MG CAPSULE PO SCH (08:01)
[2019-09-22] MEDS: MIDODRINE HCL 5MG TABLET PO SCH ×3 (08:01→16:27)
[2019-09-22] MEDS: IPRATROPIUM/ALBUTEROL 0.5-3(2.5)MG/3ML NEB HHN SCH ×3 (08:34→19:54)
[2019-09-22 09:04] LABS: BG BASE EXCESS -1.8 mmol/L (-2.0-2.0); BG CARBOXYHEMOGLOBIN 0.3 % (0.5-1.5); BG DEOXYHEMOGLOBIN 4.8 % (0.0-5.0); BG FRACTION INSPIRED OXYGEN 70; BG HCO3 ACT 25.9 mmol/L (22.0-26.0); BG METHEMOGLOBIN 0.4 % (0.0-1.5); BG OXYGEN SATURATION 95.2 % (92.0-98.5); BG OXYHEMOGLOBIN 94.5 % (94.0-97.0); BG PCO2 57.5 mmHg (35.0-45.0); BG PH 7.272 (7.350-7.450); BG PO2 83.1 mmHg (75.0-100.0); BG SAMPLE SITE RIGHT RADIAL; BG TIDAL VOLUME(mL) 450 mL; BG TOTAL HEMOGLOBIN 12.5 g/dL (12.0-18.0); BG VENT MODE VENT - PRVC; BG VENT RATE 20 set
[2019-09-22] MEDS: INSULIN GLARGINE UD 100 UNITS/ML SYR SUBCUT SCH ×2 (11:00→21:21)
[2019-09-22 13:49] LABS: PLATELET ESTIMATE NORMAL
[2019-09-22] MEDS: DOCUSATE SODIUM SUGAR FREE 100MG/10ML UDC NG SCH (16:27)
[2019-09-22 17:57] LABS: HEMOGLOBIN. 11.7 g/dL (12.0-16.0); MEAN CORPUSCULAR HEMOGLOBIN 31.4 pg (28.0-32.0); MEAN CORPUSCULAR VOLUME 93.7 fL (81.0-99.0); MEAN PLATELET VOLUME 8.4 fl (7.4-10.4); PLATELET 372 x1000/uL (130-400); RED BLOOD CELL COUNT 3.74 mill/uL (4.2-5.4)
[2019-09-22] MEDS: QUETIAPINE FUMARATE 50MG TABLET PO SCH (20:08)
[2019-09-22 20:27] LABS: PLATELET ESTIMATE NORMAL
[2019-09-23] VITALS (74 sets, daily range): BP systolic 89–136; BP diastolic 54–84
[2019-09-23] MEDS: IPRATROPIUM/ALBUTEROL 0.5-3(2.5)MG/3ML NEB HHN SCH ×4 (00:25→20:46)
[2019-09-23] MEDS: BISACODYL 10MG SUPP PR PRN (01:55)
[2019-09-23] MEDS: SODIUM CHLORIDE 0.9% 1,000 ML IV SCH (02:21)
[2019-09-23] MEDS: FAMOTIDINE 20MG TABLET PO SCH ×2 (05:32→17:20)
[2019-09-23] MEDS: DILTIAZEM HCL 30MG TABLET PO SCH ×3 (05:32→17:14)
[2019-09-23] MEDS: ENOXAPARIN 100MG/ML SYR SUBCUT SCH (05:32)
[2019-09-23] MEDS: PIPERACILLIN/TAZOBACTAM 3.375 G in DEXT 5% WATER 100 ML IV SCH ×3 (05:33→17:12)
[2019-09-23] MEDS: INSULIN LISPRO 100 UNITS/ML SUBCUT SCH ×3 (05:34→17:20)
[2019-09-23 05:45] LABS: HEMATOCRIT. 34.3 % (36.0-48.0); HEMOGLOBIN. 11.4 g/dL (12.0-16.0); MEAN CORPUSCULAR HEMOGLOBIN 31.1 pg (28.0-32.0); MEAN CORPUSCULAR VOLUME 93.6 fL (81.0-99.0); MEAN PLATELET VOLUME 8.5 fl (7.4-10.4); PLATELET 330 x1000/uL (130-400); RED BLOOD CELL COUNT 3.66 mill/uL (4.2-5.4); RED CELL DISTRIBUTION WIDTH 12.8 % (11.6-14.6)
[2019-09-23 05:55] LABS: CHLORIDE 103 mEq/L (98-107)
[2019-09-23] MEDS: BLOOD SUGAR DIAGNOSTIC STRIP TEST SCH ×3 (06:39→17:14)
[2019-09-23 07:46] LABS: BG BASE EXCESS 1.3 mmol/L (-2.0-2.0); BG CARBOXYHEMOGLOBIN 0.3 % (0.5-1.5); BG DEOXYHEMOGLOBIN 10.7 % (0.0-5.0); BG HCO3 ACT 28.2 mmol/L (22.0-26.0); BG METHEMOGLOBIN 0.3 % (0.0-1.5); BG OXYGEN SATURATION 89.2 % (92.0-98.5); BG OXYHEMOGLOBIN 88.7 % (94.0-97.0); BG PCO2 55.1 mmHg (35.0-45.0); BG PH 7.327 (7.350-7.450); BG PO2 60.1 mmHg (75.0-100.0); BG SAMPLE SITE RIGHT RADIAL; BG TIDAL VOLUME(mL) 450 mL; BG TOTAL HEMOGLOBIN 11.8 g/dL (12.0-18.0); BG VENT MODE VENT - A/C; BG VENT RATE 24 set
[2019-09-23] MEDS: DEXAMETHASONE 4MG/ML 1ML VIAL IV SCH (09:07)
[2019-09-23] MEDS: INSULIN GLARGINE UD 100 UNITS/ML SYR SUBCUT SCH ×2 (09:07→21:30)
[2019-09-23] MEDS: DOCUSATE SODIUM SUGAR FREE 100MG/10ML UDC NG SCH ×2 (09:10→17:20)
[2019-09-23] MEDS: FENTANYL CITRATE/PF 2,500 MCG in SODIUM CHLORIDE 0.9% 200 ML IV PRN ×2 (09:10→17:13)
[2019-09-23] MEDS: MIDODRINE HCL 5MG TABLET PO SCH ×3 (09:11→17:21)
[2019-09-23 12:28] LABS: PLATELET ESTIMATE NORMAL
[2019-09-23] MEDS: QUETIAPINE FUMARATE 50MG TABLET PO SCH (21:21)
[2019-09-24] VITALS (97 sets, daily range): BP systolic 86–149; BP diastolic 44–99
[2019-09-24] MEDS: IPRATROPIUM/ALBUTEROL 0.5-3(2.5)MG/3ML NEB HHN SCH ×4 (00:47→20:18)
[2019-09-24] MEDS: PIPERACILLIN/TAZOBACTAM 3.375 G in DEXT 5% WATER 100 ML IV SCH ×2 (00:52→05:53)
[2019-09-24] MEDS: FENTANYL CITRATE/PF 2,500 MCG in SODIUM CHLORIDE 0.9% 200 ML IV PRN ×3 (01:33→18:22)
[2019-09-24] MEDS: SODIUM CHLORIDE 0.9% 1,000 ML IV SCH ×2 (01:46→09:30)
[2019-09-24 05:48] LABS: CHLORIDE 100 mEq/L (98-107)
[2019-09-24 05:51] LABS: BASOPHILS % 0.1 % (0.0-2.0); EOSINOPHILS % 1.4 % (0.0-5.0); HEMATOCRIT. 32.4 % (36.0-48.0); HEMOGLOBIN. 10.9 g/dL (12.0-16.0); LYMPHOCYTES % 7.2 % (20.0-50.0); MEAN CORPUSCULAR HEMOGLOBIN 31.6 pg (28.0-32.0); MONOCYTES % 9.2 % (2.0-8.0); NEUTROPHILS % 82.1 % (40.0-76.0); RED BLOOD CELL COUNT 3.45 mill/uL (4.2-5.4); RED CELL DISTRIBUTION WIDTH 12.8 % (11.6-14.6)
[2019-09-24] MEDS: FAMOTIDINE 20MG TABLET PO SCH ×2 (05:53→15:53)
[2019-09-24] MEDS: BLOOD SUGAR DIAGNOSTIC STRIP TEST SCH ×5 (06:00→23:31)
[2019-09-24] MEDS: DILTIAZEM HCL 30MG TABLET PO SCH ×5 (06:00→23:21)
[2019-09-24] MEDS: INSULIN LISPRO 100 UNITS/ML SUBCUT SCH ×5 (06:00→23:36)
[2019-09-24 07:54] LABS: BG BASE EXCESS 3.7 mmol/L (-2.0-2.0); BG CARBOXYHEMOGLOBIN 0.3 % (0.5-1.5); BG DEOXYHEMOGLOBIN 12.8 % (0.0-5.0); BG HCO3 ACT 30.9 mmol/L (22.0-26.0); BG METHEMOGLOBIN 0.1 % (0.0-1.5); BG OXYGEN SATURATION 87.1 % (92.0-98.5); BG OXYHEMOGLOBIN 86.8 % (94.0-97.0); BG PCO2 59.7 mmHg (35.0-45.0); BG PH 7.332 (7.350-7.450); BG PO2 53.7 mmHg (75.0-100.0); BG SAMPLE SITE RIGHT RADIAL; BG TIDAL VOLUME(mL) 450 mL; BG TOTAL HEMOGLOBIN 11.7 g/dL (12.0-18.0); BG VENT MODE VENT - A/C; BG VENT RATE 24 set
[2019-09-24] MEDS: MIDODRINE HCL 5MG TABLET PO SCH ×3 (09:00→17:00)
[2019-09-24] MEDS: DEXAMETHASONE 4MG/ML 1ML VIAL IV SCH (09:28)
[2019-09-24] MEDS: DOCUSATE SODIUM SUGAR FREE 100MG/10ML UDC NG SCH ×2 (09:28→18:28)
[2019-09-24] MEDS: INSULIN GLARGINE UD 100 UNITS/ML SYR SUBCUT SCH ×2 (09:29→22:20)
[2019-09-24 09:55] LABS: MEAN PLATELET VOLUME 8.9 fl (7.4-10.4)
[2019-09-24 09:56] LABS: PLATELET 323 x1000/uL (130-400)
[2019-09-24] MEDS ORDERED: SODIUM POLYSTYRENE SULFONATE 15 G/60 ML BOT PO NR (12:00)
[2019-09-24] MEDS: QUETIAPINE FUMARATE 50MG TABLET PO SCH (22:08)
[2019-09-25] VITALS (98 sets, daily range): BP systolic 86–140; BP diastolic 55–100
[2019-09-25] MEDS: FENTANYL CITRATE/PF 2,500 MCG in SODIUM CHLORIDE 0.9% 200 ML IV PRN ×2 (04:43→15:12)
[2019-09-25] MEDS: BLOOD SUGAR DIAGNOSTIC STRIP TEST SCH ×4 (06:22→23:38)
[2019-09-25] MEDS: INSULIN LISPRO 100 UNITS/ML SUBCUT SCH ×4 (06:22→23:41)
[2019-09-25] MEDS: DILTIAZEM HCL 30MG TABLET PO SCH ×4 (06:27→23:27)
[2019-09-25] MEDS: FAMOTIDINE 20MG TABLET PO SCH ×2 (06:28→18:18)
[2019-09-25 08:54] LABS: BG BASE EXCESS 10.4 mmol/L (-2.0-2.0); BG CARBOXYHEMOGLOBIN 0.1 % (0.5-1.5); BG DEOXYHEMOGLOBIN 4.7 % (0.0-5.0); BG FRACTION INSPIRED OXYGEN 85; BG HCO3 ACT 37.9 mmol/L (22.0-26.0); BG METHEMOGLOBIN 0.4 % (0.0-1.5); BG OXYGEN SATURATION 95.3 % (92.0-98.5); BG OXYHEMOGLOBIN 94.8 % (94.0-97.0); BG PCO2 66.8 mmHg (35.0-45.0); BG PH 7.372 (7.350-7.450); BG SAMPLE SITE RIGHT RADIAL; BG TIDAL VOLUME(mL) 450 mL; BG TOTAL HEMOGLOBIN 11.5 g/dL (12.0-18.0); BG VENT MODE VENT - PRVC; BG VENT RATE 26 set
[2019-09-25] MEDS: DOCUSATE SODIUM SUGAR FREE 100MG/10ML UDC NG SCH ×2 (08:57→18:19)
[2019-09-25] MEDS: DEXAMETHASONE 4MG/ML 1ML VIAL IV SCH (08:57)
[2019-09-25] MEDS: MIDODRINE HCL 5MG TABLET PO SCH ×3 (08:57→18:18)
[2019-09-25] MEDS: IPRATROPIUM/ALBUTEROL 0.5-3(2.5)MG/3ML NEB HHN SCH ×4 (09:00→17:14)
[2019-09-25 09:33] LABS: BASOPHILS % 0.3 % (0.0-2.0); EOSINOPHILS % 2.1 % (0.0-5.0); HEMATOCRIT. 32.6 % (36.0-48.0); HEMOGLOBIN. 11.1 g/dL (12.0-16.0); LYMPHOCYTES % 10.2 % (20.0-50.0); MEAN CORPUSCULAR HEMOGLOBIN 31.6 pg (28.0-32.0); MEAN CORPUSCULAR VOLUME 92.7 fL (81.0-99.0); MEAN PLATELET VOLUME 8.2 fl (7.4-10.4); MONOCYTES % 9.8 % (2.0-8.0); NEUTROPHILS % 77.6 % (40.0-76.0); PLATELET 300 x1000/uL (130-400); RED BLOOD CELL COUNT 3.52 mill/uL (4.2-5.4); RED CELL DISTRIBUTION WIDTH 12.9 % (11.6-14.6)
[2019-09-25 09:48] LABS: CHLORIDE 98 mEq/L (98-107)
[2019-09-25] MEDS ORDERED: FUROSEMIDE 20MG/2ML VIAL IVP SCH (10:15)
[2019-09-25] MEDS: INSULIN GLARGINE UD 100 UNITS/ML SYR SUBCUT SCH ×2 (11:44→22:17)
[2019-09-25] MEDS: LORAZEPAM 2MG/ML CPJ IV PRN ×2 (12:16→21:39)
[2019-09-25] MEDS: SODIUM CHLORIDE 0.9% 1,000 ML IV SCH (12:39)
[2019-09-25] MEDS: BISACODYL 10MG SUPP PR PRN (21:36)
[2019-09-25] MEDS: QUETIAPINE FUMARATE 50MG TABLET PO SCH (21:36)
[2019-09-26] VITALS (95 sets, daily range): BP systolic 79–143; BP diastolic 52–92
[2019-09-26] MEDS: DILTIAZEM HCL 30MG TABLET PO SCH ×3 (05:02→18:00)
[2019-09-26] MEDS: INSULIN LISPRO 100 UNITS/ML SUBCUT SCH ×3 (05:25→18:28)
[2019-09-26] MEDS: BLOOD SUGAR DIAGNOSTIC STRIP TEST SCH ×3 (05:26→18:29)
[2019-09-26] MEDS: FAMOTIDINE 20MG TABLET PO SCH ×2 (05:30→15:46)
[2019-09-26] MEDS: FENTANYL CITRATE/PF 2,500 MCG in SODIUM CHLORIDE 0.9% 200 ML IV PRN ×2 (06:54→22:45)
[2019-09-26 07:49] LABS: BG BASE EXCESS 12.7 mmol/L (-2.0-2.0); BG CARBOXYHEMOGLOBIN 0.3 % (0.5-1.5); BG DEOXYHEMOGLOBIN 3.1 % (0.0-5.0); BG HCO3 ACT 38.7 mmol/L (22.0-26.0); BG METHEMOGLOBIN 0.2 % (0.0-1.5); BG OXYGEN SATURATION 96.9 % (92.0-98.5); BG OXYHEMOGLOBIN 96.4 % (94.0-97.0); BG PCO2 56.9 mmHg (35.0-45.0); BG PO2 96.4 mmHg (75.0-100.0); BG SAMPLE SITE RIGHT RADIAL; BG TIDAL VOLUME(mL) 450 mL; BG TOTAL HEMOGLOBIN 11.2 g/dL (12.0-18.0); BG VENT MODE VENT - A/C; BG VENT RATE 30 set
[2019-09-26] MEDS: IPRATROPIUM/ALBUTEROL 0.5-3(2.5)MG/3ML NEB HHN SCH ×2 (09:00→20:05)
[2019-09-26] MEDS: PHENYLEPHRINE 40 MG in DEXT 5% WATER 246 ML IV PRN (09:06)
[2019-09-26] MEDS: MIDODRINE HCL 5MG TABLET PO SCH ×3 (09:54→18:26)
[2019-09-26] MEDS: INSULIN GLARGINE UD 100 UNITS/ML SYR SUBCUT SCH ×2 (09:54→21:15)
[2019-09-26] MEDS: DOCUSATE SODIUM SUGAR FREE 100MG/10ML UDC NG SCH ×2 (09:54→18:26)
[2019-09-26] MEDS: DEXAMETHASONE 4MG/ML 1ML VIAL IV SCH (09:54)
[2019-09-26] MEDS: SODIUM CHLORIDE 0.9% 1,000 ML IV SCH (11:36)
[2019-09-26] MEDS: ENOXAPARIN 40MG/0.4ML SYR SUBCUT SCH (15:46)
[2019-09-26] MEDS: LORAZEPAM 2MG/ML CPJ IV PRN ×2 (17:05→22:22)
[2019-09-26] MEDS: QUETIAPINE FUMARATE 50MG TABLET PO SCH (21:14)
[2019-09-27] VITALS (98 sets, daily range): BP systolic 88–194; BP diastolic 51–119
[2019-09-27] MEDS: IPRATROPIUM/ALBUTEROL 0.5-3(2.5)MG/3ML NEB HHN SCH ×4 (00:35→21:05)
[2019-09-27] MEDS: INSULIN LISPRO 100 UNITS/ML SUBCUT SCH ×4 (01:58→18:24)
[2019-09-27] MEDS: PHENYLEPHRINE 40 MG in DEXT 5% WATER 246 ML IV PRN (02:51)
[2019-09-27 05:39] LABS: BASOPHILS % 0.1 % (0.0-2.0); EOSINOPHILS % 1.2 % (0.0-5.0); HEMATOCRIT. 29.9 % (36.0-48.0); HEMOGLOBIN. 10.2 g/dL (12.0-16.0); LYMPHOCYTES % 10.5 % (20.0-50.0); MEAN CORPUSCULAR HEMOGLOBIN 31.7 pg (28.0-32.0); MEAN CORPUSCULAR VOLUME 93.2 fL (81.0-99.0); MEAN PLATELET VOLUME 8.5 fl (7.4-10.4); MONOCYTES % 10.4 % (2.0-8.0); NEUTROPHILS % 77.8 % (40.0-76.0); PLATELET 338 x1000/uL (130-400); RED BLOOD CELL COUNT 3.21 mill/uL (4.2-5.4); RED CELL DISTRIBUTION WIDTH 12.8 % (11.6-14.6)
[2019-09-27 05:40] LABS: CHLORIDE 98 mEq/L (98-107)
[2019-09-27] MEDS: FAMOTIDINE 20MG TABLET PO SCH ×2 (05:57→18:25)
[2019-09-27] MEDS: BLOOD SUGAR DIAGNOSTIC STRIP TEST SCH ×4 (05:57→18:25)
[2019-09-27] MEDS: SODIUM CHLORIDE 0.9% 1,000 ML IV SCH ×2 (05:59→18:25)
[2019-09-27] MEDS: DILTIAZEM HCL 30MG TABLET PO SCH ×4 (06:09→18:23)
[2019-09-27] MEDS: DEXAMETHASONE 4MG/ML 1ML VIAL IV SCH (08:10)
[2019-09-27] MEDS: DOCUSATE SODIUM SUGAR FREE 100MG/10ML UDC NG SCH ×2 (08:10→18:25)
[2019-09-27] MEDS: MIDODRINE HCL 5MG TABLET PO SCH ×3 (08:10→18:22)
[2019-09-27 08:58] LABS: BG BASE EXCESS 11.9 mmol/L (-2.0-2.0); BG CARBOXYHEMOGLOBIN 0.3 % (0.5-1.5); BG DEOXYHEMOGLOBIN 3.3 % (0.0-5.0); BG FRACTION INSPIRED OXYGEN 35; BG HCO3 ACT 38.6 mmol/L (22.0-26.0); BG METHEMOGLOBIN 0.1 % (0.0-1.5); BG OXYGEN SATURATION 96.7 % (92.0-98.5); BG OXYHEMOGLOBIN 96.3 % (94.0-97.0); BG PCO2 62.3 mmHg (35.0-45.0); BG PO2 95.5 mmHg (75.0-100.0); BG SAMPLE SITE RIGHT RADIAL; BG TIDAL VOLUME(mL) 450 mL; BG TOTAL HEMOGLOBIN 10.9 g/dL (12.0-18.0); BG VENT MODE VENT- PRVC; BG VENT RATE 35 set
[2019-09-27] MEDS: INSULIN GLARGINE UD 100 UNITS/ML SYR SUBCUT SCH ×2 (10:39→20:38)
[2019-09-27] MEDS: ENOXAPARIN 40MG/0.4ML SYR SUBCUT SCH (13:27)
[2019-09-27] MEDS: QUETIAPINE FUMARATE 50MG TABLET PO SCH (20:38)
[2019-09-28] VITALS (93 sets, daily range): BP systolic 87–139; BP diastolic 56–112
[2019-09-28] MEDS: IPRATROPIUM/ALBUTEROL 0.5-3(2.5)MG/3ML NEB HHN SCH ×4 (01:25→20:15)
[2019-09-28] MEDS: FENTANYL CITRATE/PF 2,500 MCG in SODIUM CHLORIDE 0.9% 200 ML IV PRN ×2 (02:30→18:42)
[2019-09-28] MEDS ORDERED: IOHEXOL-300 100 ML BOTTLE ONE (02:58)
[2019-09-28] MEDS: INSULIN LISPRO 100 UNITS/ML SUBCUT SCH ×4 (06:00→18:07)
[2019-09-28] MEDS: DILTIAZEM HCL 30MG TABLET PO SCH ×5 (06:00→23:56)
[2019-09-28] MEDS: BLOOD SUGAR DIAGNOSTIC STRIP TEST SCH ×4 (06:00→17:29)
[2019-09-28] MEDS: FAMOTIDINE 20MG TABLET PO SCH ×2 (06:14→16:07)
[2019-09-28] MEDS: DOCUSATE SODIUM SUGAR FREE 100MG/10ML UDC NG SCH ×2 (09:13→17:28)
[2019-09-28] MEDS: DEXAMETHASONE 4MG/ML 1ML VIAL IV SCH (09:13)
[2019-09-28] MEDS: MIDODRINE HCL 5MG TABLET PO SCH ×3 (09:13→17:29)
[2019-09-28] MEDS: INSULIN GLARGINE UD 100 UNITS/ML SYR SUBCUT SCH (09:18)
[2019-09-28 09:42] LABS: BG BASE EXCESS 10.6 mmol/L (-2.0-2.0); BG CARBOXYHEMOGLOBIN 0.3 % (0.5-1.5); BG DEOXYHEMOGLOBIN 2.8 % (0.0-5.0); BG FRACTION INSPIRED OXYGEN 65; BG HCO3 ACT 34.9 mmol/L (22.0-26.0); BG METHEMOGLOBIN 0.3 % (0.0-1.5); BG OXYGEN SATURATION 97.2 % (92.0-98.5); BG OXYHEMOGLOBIN 96.6 % (94.0-97.0); BG PCO2 45.8 mmHg (35.0-45.0); BG PO2 95.9 mmHg (75.0-100.0); BG SAMPLE SITE RIGHT RADIAL; BG TIDAL VOLUME(mL) 500 mL; BG TOTAL HEMOGLOBIN 10.7 g/dL (12.0-18.0); BG VENT MODE VENT- PRVC; BG VENT RATE 30 set
[2019-09-28] MEDS ORDERED: BISACODYL 10MG SUPP PR SCH (10:15)
[2019-09-28] MEDS: LORAZEPAM 2MG/ML CPJ IV PRN (11:49)
[2019-09-28] MEDS: ENOXAPARIN 40MG/0.4ML SYR SUBCUT SCH (14:22)
[2019-09-28] MEDS ORDERED: LACTULOSE 20G/30ML UDC PO SCH (14:30)
[2019-09-28] MEDS: SODIUM CHLORIDE 0.9% 1,000 ML IV SCH (14:45)
[2019-09-28] MEDS: QUETIAPINE FUMARATE 50MG TABLET PO SCH (20:28)
[2019-09-29] VITALS (97 sets, daily range): BP systolic 79–169; BP diastolic 30–109
[2019-09-29] MEDS: BLOOD SUGAR DIAGNOSTIC STRIP TEST SCH ×8 (00:10→23:30)
[2019-09-29] MEDS: IPRATROPIUM/ALBUTEROL 0.5-3(2.5)MG/3ML NEB HHN SCH ×4 (03:40→21:21)
[2019-09-29] MEDS: INSULIN LISPRO 100 UNITS/ML SUBCUT SCH ×5 (06:00→20:31)
[2019-09-29] MEDS: FAMOTIDINE 20MG TABLET PO SCH ×2 (07:09→17:09)
[2019-09-29] MEDS: DILTIAZEM HCL 30MG TABLET PO SCH ×4 (07:10→23:34)
[2019-09-29] MEDS: LORAZEPAM 2MG/ML CPJ IV PRN ×2 (07:33→22:53)
[2019-09-29 08:17] LABS: BG CARBOXYHEMOGLOBIN 0.2 % (0.5-1.5); BG DEOXYHEMOGLOBIN 3.6 % (0.0-5.0); BG HCO3 ACT 34.1 mmol/L (22.0-26.0); BG METHEMOGLOBIN 0.3 % (0.0-1.5); BG OXYGEN SATURATION 96.4 % (92.0-98.5); BG OXYHEMOGLOBIN 95.9 % (94.0-97.0); BG PCO2 55.2 mmHg (35.0-45.0); BG PH 7.409 (7.350-7.450); BG PO2 90.2 mmHg (75.0-100.0); BG SAMPLE SITE RIGHT RADIAL; BG TIDAL VOLUME(mL) 450 mL; BG TOTAL HEMOGLOBIN 11.4 g/dL (12.0-18.0); BG VENT MODE VENT/ PRVC; BG VENT RATE 30 set
[2019-09-29] MEDS: FENTANYL CITRATE/PF 2,500 MCG in SODIUM CHLORIDE 0.9% 200 ML IV PRN ×2 (08:52→22:52)
[2019-09-29] MEDS: MIDODRINE HCL 5MG TABLET PO SCH ×3 (09:31→17:09)
[2019-09-29] MEDS: DOCUSATE SODIUM SUGAR FREE 100MG/10ML UDC NG SCH ×2 (09:31→17:09)
[2019-09-29] MEDS: SODIUM CHLORIDE 0.9% 1,000 ML IV SCH (09:53)
[2019-09-29] MEDS ORDERED: DEXTROSE 50% WATER 50ML SYRINGE IV PRN (10:45)
[2019-09-29] MEDS: ENOXAPARIN 40MG/0.4ML SYR SUBCUT SCH (13:38)
[2019-09-29] MEDS: QUETIAPINE FUMARATE 50MG TABLET PO SCH (20:32)
[2019-09-30] VITALS (91 sets, daily range): BP systolic 89–142; BP diastolic 51–110
[2019-09-30] MEDS: ACETAMINOPHEN 325MG TABLET PO PRN (00:19)
[2019-09-30] MEDS: IPRATROPIUM/ALBUTEROL 0.5-3(2.5)MG/3ML NEB HHN SCH ×4 (01:36→20:25)
[2019-09-30] MEDS: DILTIAZEM HCL 30MG TABLET PO SCH ×3 (06:00→17:35)
[2019-09-30] MEDS: BLOOD SUGAR DIAGNOSTIC STRIP TEST SCH ×4 (06:09→21:00)
[2019-09-30] MEDS: INSULIN LISPRO 100 UNITS/ML SUBCUT SCH ×4 (06:10→22:18)
[2019-09-30] MEDS: FAMOTIDINE 20MG TABLET PO SCH ×2 (06:10→17:00)
[2019-09-30] MEDS: DOCUSATE SODIUM SUGAR FREE 100MG/10ML UDC NG SCH ×2 (08:42→17:33)
[2019-09-30] MEDS: MIDODRINE HCL 5MG TABLET PO SCH ×3 (08:43→17:34)
[2019-09-30 09:43] LABS: BG BASE EXCESS 7.6 mmol/L (-2.0-2.0); BG DEOXYHEMOGLOBIN 2.7 % (0.0-5.0); BG FRACTION INSPIRED OXYGEN 55; BG HCO3 ACT 33.2 mmol/L (22.0-26.0); BG METHEMOGLOBIN 0.4 % (0.0-1.5); BG OXYGEN SATURATION 97.3 % (92.0-98.5); BG OXYHEMOGLOBIN 96.9 % (94.0-97.0); BG PCO2 51.9 mmHg (35.0-45.0); BG PH 7.424 (7.350-7.450); BG PO2 104.9 mmHg (75.0-100.0); BG SAMPLE SITE RIGHT RADIAL; BG TIDAL VOLUME(mL) 450 mL; BG TOTAL HEMOGLOBIN 10.7 g/dL (12.0-18.0); BG VENT MODE VENT - PRVC; BG VENT RATE 28 set
[2019-09-30] MEDS: SODIUM CHLORIDE 0.9% 1,000 ML IV SCH (13:07)
[2019-09-30] MEDS: ENOXAPARIN 40MG/0.4ML SYR SUBCUT SCH (14:00)
[2019-09-30] MEDS: FENTANYL CITRATE/PF 2,500 MCG in SODIUM CHLORIDE 0.9% 200 ML IV PRN (15:11)
[2019-09-30] MEDS: QUETIAPINE FUMARATE 50MG TABLET PO SCH (22:17)
[2019-10-01] VITALS (99 sets, daily range): BP systolic 76–153; BP diastolic 42–111
[2019-10-01] MEDS: DILTIAZEM HCL 30MG TABLET PO SCH ×5 (00:14→23:23)
[2019-10-01] MEDS: IPRATROPIUM/ALBUTEROL 0.5-3(2.5)MG/3ML NEB HHN SCH ×3 (01:05→20:00)
[2019-10-01] MEDS: SODIUM CHLORIDE 0.9% 1,000 ML IV SCH ×2 (02:54→22:27)
[2019-10-01 05:43] LABS: BASOPHILS % 0.4 % (0.0-2.0); EOSINOPHILS % 5.1 % (0.0-5.0); HEMATOCRIT. 28.9 % (36.0-48.0); HEMOGLOBIN. 9.9 g/dL (12.0-16.0); LYMPHOCYTES % 8.4 % (20.0-50.0); MEAN CORPUSCULAR HEMOGLOBIN 31.8 pg (28.0-32.0); MEAN CORPUSCULAR VOLUME 93.1 fL (81.0-99.0); MEAN PLATELET VOLUME 8.6 fl (7.4-10.4); MONOCYTES % 7.1 % (2.0-8.0); PLATELET 240 x1000/uL (130-400); RED BLOOD CELL COUNT 3.11 mill/uL (4.2-5.4)
[2019-10-01 05:47] LABS: CHLORIDE 97 mEq/L (98-107)
[2019-10-01] MEDS: FENTANYL CITRATE/PF 2,500 MCG in SODIUM CHLORIDE 0.9% 200 ML IV PRN ×2 (06:05→17:51)
[2019-10-01] MEDS: FAMOTIDINE 20MG TABLET PO SCH ×2 (06:14→17:49)
[2019-10-01] MEDS: BLOOD SUGAR DIAGNOSTIC STRIP TEST SCH ×4 (06:16→23:23)
[2019-10-01] MEDS: INSULIN LISPRO 100 UNITS/ML SUBCUT SCH ×4 (06:16→23:24)
[2019-10-01] MEDS: DOCUSATE SODIUM SUGAR FREE 100MG/10ML UDC NG SCH ×2 (08:35→17:49)
[2019-10-01] MEDS: MIDODRINE HCL 5MG TABLET PO SCH ×3 (08:35→17:49)
[2019-10-01 08:38] LABS: BG BASE EXCESS 9.7 mmol/L (-2.0-2.0); BG CARBOXYHEMOGLOBIN 0.1 % (0.5-1.5); BG DEOXYHEMOGLOBIN 6.2 % (0.0-5.0); BG FRACTION INSPIRED OXYGEN 55; BG HCO3 ACT 36.2 mmol/L (22.0-26.0); BG OXYGEN SATURATION 93.8 % (92.0-98.5); BG OXYHEMOGLOBIN 93.7 % (94.0-97.0); BG PCO2 59.3 mmHg (35.0-45.0); BG PH 7.404 (7.350-7.450); BG PO2 70.6 mmHg (75.0-100.0); BG SAMPLE SITE RIGHT RADIAL; BG TIDAL VOLUME(mL) 450 mL; BG TOTAL HEMOGLOBIN 11.6 g/dL (12.0-18.0); BG VENT MODE PRVC; BG VENT RATE 28 set
[2019-10-01] MEDS: PHENYLEPHRINE 40 MG in DEXT 5% WATER 246 ML IV PRN (13:37)
[2019-10-01] MEDS: ENOXAPARIN 40MG/0.4ML SYR SUBCUT SCH (13:38)
[2019-10-01] MEDS ORDERED: DEXTROSE 50% WATER 50ML SYRINGE IV PRN (19:45)
[2019-10-01] MEDS ORDERED: BLOOD SUGAR DIAGNOSTIC STRIP TEST SCH (21:00)
[2019-10-01] MEDS ORDERED: INSULIN LISPRO 100 UNITS/ML SUBCUT SCH (21:00)
[2019-10-01] MEDS: QUETIAPINE FUMARATE 50MG TABLET PO SCH (22:28)
[2019-10-01] MEDS ORDERED: ACETAMINOPHEN 650MG/20.3ML UDC ONE (22:37)
[2019-10-02] VITALS (93 sets, daily range): BP systolic 75–152; BP diastolic 40–89
[2019-10-02] MEDS: MIDAZOLAM HCL 100 MG in DEXT 5% WATER 80 ML IV PRN ×2 (02:08→18:14)
[2019-10-02] MEDS: FENTANYL CITRATE/PF 2,500 MCG in SODIUM CHLORIDE 0.9% 200 ML IV PRN ×3 (02:09→18:16)
[2019-10-02] MEDS: IPRATROPIUM/ALBUTEROL 0.5-3(2.5)MG/3ML NEB HHN SCH ×4 (04:15→20:39)
[2019-10-02 05:48] LABS: HEMATOCRIT. 29.9 % (36.0-48.0); HEMOGLOBIN. 10.2 g/dL (12.0-16.0); MEAN CORPUSCULAR HEMOGLOBIN 31.9 pg (28.0-32.0); MEAN CORPUSCULAR VOLUME 93.8 fL (81.0-99.0); MEAN PLATELET VOLUME 8.8 fl (7.4-10.4); PLATELET 240 x1000/uL (130-400); RED BLOOD CELL COUNT 3.19 mill/uL (4.2-5.4); RED CELL DISTRIBUTION WIDTH 13.1 % (11.6-14.6)
[2019-10-02 06:00] LABS: CHLORIDE 99 mEq/L (98-107)
[2019-10-02] MEDS: DILTIAZEM HCL 30MG TABLET PO SCH ×3 (06:00→18:16)
[2019-10-02] MEDS: INSULIN LISPRO 100 UNITS/ML SUBCUT SCH ×3 (06:00→18:00)
[2019-10-02] MEDS: BLOOD SUGAR DIAGNOSTIC STRIP TEST SCH ×3 (06:01→18:17)
[2019-10-02] MEDS: FAMOTIDINE 20MG/2ML VIAL IV SCH ×2 (08:26→21:00)
[2019-10-02] MEDS: DOCUSATE SODIUM SUGAR FREE 100MG/10ML UDC NG SCH ×2 (08:26→18:15)
[2019-10-02] MEDS: MIDODRINE HCL 5MG TABLET PO SCH ×3 (08:26→18:15)
[2019-10-02 08:30] LABS: BG BASE EXCESS 8.2 mmol/L (-2.0-2.0); BG CARBOXYHEMOGLOBIN 0.5 % (0.5-1.5); BG DEOXYHEMOGLOBIN 10.5 % (0.0-5.0); BG FRACTION INSPIRED OXYGEN 45; BG HCO3 ACT 34.9 mmol/L (22.0-26.0); BG METHEMOGLOBIN 0.2 % (0.0-1.5); BG OXYGEN SATURATION 89.4 % (92.0-98.5); BG OXYHEMOGLOBIN 88.8 % (94.0-97.0); BG PCO2 59.4 mmHg (35.0-45.0); BG PH 7.387 (7.350-7.450); BG PO2 57.7 mmHg (75.0-100.0); BG SAMPLE SITE RIGHT RADIAL; BG TIDAL VOLUME(mL) 450 mL; BG TOTAL HEMOGLOBIN 11.3 g/dL (12.0-18.0); BG VENT MODE VENT - A/C; BG VENT RATE 28 set
[2019-10-02 10:50] LABS: PLATELET ESTIMATE NORMAL
[2019-10-02] MEDS: ENOXAPARIN 40MG/0.4ML SYR SUBCUT SCH (13:03)
[2019-10-02] MEDS: QUETIAPINE FUMARATE 50MG TABLET PO SCH (21:00)
[2019-10-02] MEDS: SODIUM CHLORIDE 0.9% 1,000 ML IV SCH (21:00)
[2019-10-02] MEDS: PHENYLEPHRINE 50 MG in DEXTROSE 5% WATER 250 ML IV PRN (23:18)
[2019-10-03] VITALS (88 sets, daily range): BP systolic 64–131; BP diastolic 41–89
[2019-10-03] MEDS: BLOOD SUGAR DIAGNOSTIC STRIP TEST SCH ×4 (00:06→18:15)
[2019-10-03] MEDS: DILTIAZEM HCL 30MG TABLET PO SCH ×2 (00:10→06:03)
[2019-10-03] MEDS: CEFEPIME 1,000 MG in DEXTROSE 5% WATER 50 ML IV SCH ×3 (00:11→23:48)
[2019-10-03] MEDS: FENTANYL CITRATE/PF 2,500 MCG in SODIUM CHLORIDE 0.9% 200 ML IV PRN ×4 (00:18→23:06)
[2019-10-03] MEDS: ACETAMINOPHEN 325MG TABLET PO PRN ×2 (00:41→20:53)
[2019-10-03] MEDS: IPRATROPIUM/ALBUTEROL 0.5-3(2.5)MG/3ML NEB HHN SCH ×4 (01:12→20:35)
[2019-10-03 04:51] LABS: CLARITY URINE CLEAR (CLEAR); COLOR URINE YELLOW (YELLOW); KETONES URINE NEGATIVE (NEGATIVE); LEUKOCYTE ESTERASE URINE NEGATIVE (NEGATIVE); NITRITE URINE NEGATIVE (NEGATIVE); OCCULT BLOOD URINE TRACE (NEGATIVE); PROTEIN URINE NEGATIVE (NEGATIVE); SPECIFIC GRAVITY URINE 1.014 (1.005-1.030)
[2019-10-03] MEDS: PHENYLEPHRINE 50 MG in DEXTROSE 5% WATER 250 ML IV PRN ×4 (04:57→19:42)
[2019-10-03 05:38] LABS: EOSINOPHILS % 8.3 % (0.0-5.0); HEMATOCRIT. 26.9 % (36.0-48.0); HEMOGLOBIN. 9.1 g/dL (12.0-16.0); LYMPHOCYTES % 16.5 % (20.0-50.0); MEAN CORPUSCULAR HEMOGLOBIN 31.6 pg (28.0-32.0); MEAN CORPUSCULAR VOLUME 93.6 fL (81.0-99.0); MEAN PLATELET VOLUME 8.7 fl (7.4-10.4); MONOCYTES % 13.8 % (2.0-8.0); NEUTROPHILS % 60.4 % (40.0-76.0); PLATELET 257 x1000/uL (130-400); RED BLOOD CELL COUNT 2.87 mill/uL (4.2-5.4); RED CELL DISTRIBUTION WIDTH 13.2 % (11.6-14.6)
[2019-10-03 05:45] LABS: CHLORIDE 99 mEq/L (98-107)
[2019-10-03] MEDS ORDERED: LORAZEPAM 2MG/ML CPJ IV PRN (06:00)
[2019-10-03] MEDS: INSULIN LISPRO 100 UNITS/ML SUBCUT SCH ×4 (06:00→18:00)
[2019-10-03 06:28] LABS: INR 1.1; PROTHROMBIN TIME 11.6 sec (9.6-11.0)
[2019-10-03] MEDS ORDERED: PROPOFOL 10MG/ML 100ML 100 ML IV SCH (07:00)
[2019-10-03 07:36] LABS: BG BASE EXCESS 5.6 mmol/L (-2.0-2.0); BG CARBOXYHEMOGLOBIN 0.7 % (0.5-1.5); BG DEOXYHEMOGLOBIN 6.4 % (0.0-5.0); BG HCO3 ACT 31.7 mmol/L (22.0-26.0); BG METHEMOGLOBIN 0.2 % (0.0-1.5); BG OXYGEN SATURATION 93.5 % (92.0-98.5); BG OXYHEMOGLOBIN 92.7 % (94.0-97.0); BG PCO2 54.5 mmHg (35.0-45.0); BG PH 7.382 (7.350-7.450); BG PO2 71.8 mmHg (75.0-100.0); BG SAMPLE SITE RIGHT RADIAL; BG TIDAL VOLUME(mL) 450 mL; BG TOTAL HEMOGLOBIN 9.6 g/dL (12.0-18.0); BG VENT MODE VENT- PRVC; BG VENT RATE 26 set
[2019-10-03] MEDS: MIDAZOLAM HCL 100 MG in DEXT 5% WATER 80 ML IV PRN ×2 (07:44→21:10)
[2019-10-03] MEDS ORDERED: LIDOCAINE HCL/EPINEPHRINE 1%-EPI 1:100,000 20 ML VIAL INFIL SCH (08:00)
[2019-10-03] MEDS: DOCUSATE SODIUM SUGAR FREE 100MG/10ML UDC NG SCH ×2 (08:30→16:14)
[2019-10-03] MEDS: MIDODRINE HCL 5MG TABLET PO SCH ×3 (08:30→16:14)
[2019-10-03] MEDS: FAMOTIDINE 20MG/2ML VIAL IV SCH ×2 (09:22→20:52)
[2019-10-03] MEDS ORDERED: PROPOFOL 200MG/20ML VIAL IV SCH (11:15)
[2019-10-03] MEDS: SODIUM CHLORIDE 0.9% 1,000 ML IV SCH (14:01)
[2019-10-03] MEDS: QUETIAPINE FUMARATE 50MG TABLET PO SCH (20:53)
[2019-10-04] VITALS (80 sets, daily range): BP systolic 66–149; BP diastolic 36–98
[2019-10-04] MEDS: IPRATROPIUM/ALBUTEROL 0.5-3(2.5)MG/3ML NEB HHN SCH ×4 (01:01→20:08)
[2019-10-04] MEDS: PHENYLEPHRINE 50 MG in DEXTROSE 5% WATER 250 ML IV PRN ×5 (01:02→18:35)
[2019-10-04] MEDS: BLOOD SUGAR DIAGNOSTIC STRIP TEST SCH ×5 (05:31→23:58)
[2019-10-04] MEDS: INSULIN LISPRO 100 UNITS/ML SUBCUT SCH ×5 (05:36→23:58)
[2019-10-04 05:58] LABS: BASOPHILS % 0.6 % (0.0-2.0); HEMATOCRIT. 25.4 % (36.0-48.0); HEMOGLOBIN. 8.6 g/dL (12.0-16.0); LYMPHOCYTES % 12.8 % (20.0-50.0); MEAN CORPUSCULAR HEMOGLOBIN 31.5 pg (28.0-32.0); MEAN CORPUSCULAR VOLUME 93.3 fL (81.0-99.0); MEAN PLATELET VOLUME 8.5 fl (7.4-10.4); MONOCYTES % 14.2 % (2.0-8.0); NEUTROPHILS % 64.4 % (40.0-76.0); PLATELET 220 x1000/uL (130-400); RED BLOOD CELL COUNT 2.72 mill/uL (4.2-5.4); RED CELL DISTRIBUTION WIDTH 13.2 % (11.6-14.6)
[2019-10-04 05:59] LABS: CHLORIDE 102 mEq/L (98-107)
[2019-10-04] MEDS: DOCUSATE SODIUM SUGAR FREE 100MG/10ML UDC NG SCH ×2 (08:14→17:22)
[2019-10-04] MEDS: FAMOTIDINE 20MG/2ML VIAL IV SCH ×2 (08:14→20:42)
[2019-10-04] MEDS: MIDODRINE HCL 5MG TABLET PO SCH ×3 (08:15→17:22)
[2019-10-04] MEDS: SODIUM CHLORIDE 0.9% 1,000 ML IV SCH (08:48)
[2019-10-04] MEDS: FENTANYL CITRATE/PF 2,500 MCG in SODIUM CHLORIDE 0.9% 200 ML IV PRN ×2 (08:49→23:24)
[2019-10-04] MEDS: CEFEPIME 1,000 MG in DEXTROSE 5% WATER 50 ML IV SCH (12:03)
[2019-10-04] MEDS: MIDAZOLAM HCL 100 MG in DEXT 5% WATER 80 ML IV PRN (12:04)
[2019-10-04] MEDS: ACETAMINOPHEN 325MG TABLET PO PRN ×2 (12:19→23:40)
[2019-10-04] MEDS: QUETIAPINE FUMARATE 50MG TABLET PO SCH (20:43)
[2019-10-04] MEDS ORDERED: DILTIAZEM HCL 5MG/ML 5ML VIAL IV NR (23:15)
[2019-10-05] VITALS (100 sets, daily range): BP systolic 71–151; BP diastolic 43–87
[2019-10-05] MEDS ORDERED: DILTIAZEM HCL 125 MG in DEXT 5% WATER 100 ML IV PRN (00:30)
[2019-10-05 01:04] LABS: BG BASE EXCESS 2.3 mmol/L (-2.0-2.0); BG CARBOXYHEMOGLOBIN 0.3 % (0.5-1.5); BG DEOXYHEMOGLOBIN 2.5 % (0.0-5.0); BG FRACTION INSPIRED OXYGEN 100; BG HCO3 ACT 27.4 mmol/L (22.0-26.0); BG METHEMOGLOBIN 0.1 % (0.0-1.5); BG OXYGEN SATURATION 97.5 % (92.0-98.5); BG OXYHEMOGLOBIN 97.1 % (94.0-97.0); BG PCO2 44.6 mmHg (35.0-45.0); BG PH 7.406 (7.350-7.450); BG PO2 105.6 mmHg (75.0-100.0); BG SAMPLE SITE LEFT RADIAL; BG TIDAL VOLUME(mL) 450 mL; BG VENT MODE VENT - A/C; BG VENT RATE 26 set
[2019-10-05] MEDS: IPRATROPIUM/ALBUTEROL 0.5-3(2.5)MG/3ML NEB HHN SCH ×4 (01:19→16:52)
[2019-10-05] MEDS: MIDAZOLAM HCL 100 MG in DEXT 5% WATER 80 ML IV PRN ×3 (02:13→22:07)
[2019-10-05] MEDS: PHENYLEPHRINE 50 MG in DEXTROSE 5% WATER 250 ML IV PRN (04:23)
[2019-10-05 05:48] LABS: CHLORIDE 102 mEq/L (98-107)
[2019-10-05 05:54] LABS: BASOPHILS % 0.5 % (0.0-2.0); EOSINOPHILS % 6.7 % (0.0-5.0); HEMATOCRIT. 26.7 % (36.0-48.0); LYMPHOCYTES % 12.6 % (20.0-50.0); MEAN CORPUSCULAR HEMOGLOBIN 31.2 pg (28.0-32.0); MEAN PLATELET VOLUME 8.8 fl (7.4-10.4); MONOCYTES % 11.8 % (2.0-8.0); NEUTROPHILS % 68.4 % (40.0-76.0); PLATELET 226 x1000/uL (130-400); RED BLOOD CELL COUNT 2.88 mill/uL (4.2-5.4); RED CELL DISTRIBUTION WIDTH 13.1 % (11.6-14.6)
[2019-10-05] MEDS: BLOOD SUGAR DIAGNOSTIC STRIP TEST SCH ×4 (06:00→23:32)
[2019-10-05] MEDS: INSULIN LISPRO 100 UNITS/ML SUBCUT SCH ×4 (06:01→23:33)
[2019-10-05] MEDS: SODIUM CHLORIDE 0.9% 1,000 ML IV SCH (06:21)
[2019-10-05] MEDS: MIDODRINE HCL 5MG TABLET PO SCH ×3 (09:00→17:26)
[2019-10-05] MEDS: DOCUSATE SODIUM SUGAR FREE 100MG/10ML UDC NG SCH ×2 (09:00→17:28)
[2019-10-05] MEDS: FAMOTIDINE 20MG/2ML VIAL IV SCH ×2 (09:00→20:51)
[2019-10-05] MEDS: DILTIAZEM HCL 30MG TABLET PO SCH ×3 (12:14→23:32)
[2019-10-05] MEDS: CEFEPIME 1,000 MG in DEXTROSE 5% WATER 50 ML IV SCH ×4 (12:15→23:32)
[2019-10-05] MEDS ORDERED: LACTULOSE 20G/30ML UDC PO NR (13:00)
[2019-10-05] MEDS: FENTANYL CITRATE/PF 2,500 MCG in SODIUM CHLORIDE 0.9% 200 ML IV PRN ×2 (14:37→23:52)
[2019-10-05] MEDS: PHENYLEPHRINE 100 MG in DEXT 5% WATER 240 ML IV PRN (19:13)
[2019-10-05] MEDS: QUETIAPINE FUMARATE 50MG TABLET PO SCH (20:51)
[2019-10-05] MEDS: ACETAMINOPHEN 325MG TABLET PO PRN (23:44)
[2019-10-06] VITALS (99 sets, daily range): BP systolic 78–140; BP diastolic 29–97
[2019-10-06] MEDS: SODIUM CHLORIDE 0.9% 1,000 ML IV SCH ×2 (02:34→23:40)
[2019-10-06] MEDS: NOREPINEPHRINE 8 MG in SODIUM CHLORIDE 0.9% 242 ML IV PRN (02:55)
[2019-10-06] MEDS: PHENYLEPHRINE 100 MG in DEXT 5% WATER 240 ML IV PRN ×4 (04:10→22:17)
[2019-10-06] MEDS: DILTIAZEM HCL 30MG TABLET PO SCH ×4 (05:44→23:39)
[2019-10-06] MEDS: BLOOD SUGAR DIAGNOSTIC STRIP TEST SCH ×4 (05:45→23:40)
[2019-10-06] MEDS: INSULIN LISPRO 100 UNITS/ML SUBCUT SCH ×4 (05:56→23:40)
[2019-10-06] MEDS: MIDAZOLAM HCL 100 MG in DEXT 5% WATER 80 ML IV PRN ×2 (06:55→15:46)
[2019-10-06] MEDS: FENTANYL CITRATE/PF 2,500 MCG in SODIUM CHLORIDE 0.9% 200 ML IV PRN ×3 (08:11→22:38)
[2019-10-06 09:10] LABS: BG BASE EXCESS 2.5 mmol/L (-2.0-2.0); BG CARBOXYHEMOGLOBIN 0.3 % (0.5-1.5); BG DEOXYHEMOGLOBIN 2.3 % (0.0-5.0); BG FRACTION INSPIRED OXYGEN 100; BG HCO3 ACT 29.2 mmol/L (22.0-26.0); BG METHEMOGLOBIN 0.1 % (0.0-1.5); BG OXYGEN SATURATION 97.7 % (92.0-98.5); BG OXYHEMOGLOBIN 97.3 % (94.0-97.0); BG PCO2 58.3 mmHg (35.0-45.0); BG PH 7.318 (7.350-7.450); BG PO2 123.5 mmHg (75.0-100.0); BG SAMPLE SITE RIGHT RADIAL; BG TIDAL VOLUME(mL) 450 mL; BG TOTAL HEMOGLOBIN 8.6 g/dL (12.0-18.0); BG VENT MODE VENT - PRVC; BG VENT RATE 26 set
[2019-10-06] MEDS: FAMOTIDINE 20MG/2ML VIAL IV SCH ×2 (09:50→21:25)
[2019-10-06] MEDS: DOCUSATE SODIUM SUGAR FREE 100MG/10ML UDC NG SCH ×2 (10:08→19:57)
[2019-10-06] MEDS: MIDODRINE HCL 5MG TABLET PO SCH ×3 (10:10→17:53)
[2019-10-06] MEDS ORDERED: ACETAMINOPHEN 325MG TABLET PO PRN (10:30)
[2019-10-06] MEDS: CEFEPIME 1,000 MG in DEXTROSE 5% WATER 50 ML IV SCH ×2 (12:18→23:39)
[2019-10-06] MEDS ORDERED: SORBITOL 70% SOLN 30ML PO NR (12:30)
[2019-10-06] MEDS: IPRATROPIUM/ALBUTEROL 0.5-3(2.5)MG/3ML NEB HHN SCH ×2 (15:19→20:51)
[2019-10-06] MEDS: QUETIAPINE FUMARATE 50MG TABLET PO SCH (21:25)
[2019-10-07] VITALS (92 sets, daily range): BP systolic 49–141; BP diastolic 23–93
[2019-10-07] MEDS: MIDAZOLAM HCL 100 MG in DEXT 5% WATER 80 ML IV PRN ×3 (03:29→21:59)
[2019-10-07] MEDS: IPRATROPIUM/ALBUTEROL 0.5-3(2.5)MG/3ML NEB HHN SCH ×5 (04:57→20:50)
[2019-10-07] MEDS: SODIUM CHLORIDE 0.9% 1,000 ML IV SCH (05:00)
[2019-10-07] MEDS: DILTIAZEM HCL 30MG TABLET PO SCH ×4 (05:29→23:52)
[2019-10-07] MEDS: BLOOD SUGAR DIAGNOSTIC STRIP TEST SCH ×3 (06:46→18:40)
[2019-10-07] MEDS: INSULIN LISPRO 100 UNITS/ML SUBCUT SCH ×3 (06:49→18:00)
[2019-10-07] MEDS: FENTANYL CITRATE/PF 2,500 MCG in SODIUM CHLORIDE 0.9% 200 ML IV PRN ×3 (07:23→19:54)
[2019-10-07 08:28] LABS: BG BASE EXCESS -1.3 mmol/L (-2.0-2.0); BG CARBOXYHEMOGLOBIN 0.1 % (0.5-1.5); BG DEOXYHEMOGLOBIN 3.9 % (0.0-5.0); BG HCO3 ACT 25.1 mmol/L (22.0-26.0); BG METHEMOGLOBIN 0.2 % (0.0-1.5); BG OXYGEN SATURATION 96.1 % (92.0-98.5); BG OXYHEMOGLOBIN 95.8 % (94.0-97.0); BG PCO2 51.3 mmHg (35.0-45.0); BG PH 7.308 (7.350-7.450); BG PO2 91.6 mmHg (75.0-100.0); BG SAMPLE SITE RIGHT RADIAL; BG TIDAL VOLUME(mL) 450 mL; BG TOTAL HEMOGLOBIN 8.2 g/dL (12.0-18.0); BG VENT MODE VENT- PRVC; BG VENT RATE 28 set
[2019-10-07] MEDS: FAMOTIDINE 20MG/2ML VIAL IV SCH ×2 (09:00→21:01)
[2019-10-07] MEDS: DOCUSATE SODIUM SUGAR FREE 100MG/10ML UDC NG SCH ×2 (09:00→17:04)
[2019-10-07] MEDS: PHENYLEPHRINE 100 MG in DEXT 5% WATER 240 ML IV PRN (11:45)
[2019-10-07] MEDS: CEFEPIME 1,000 MG in DEXTROSE 5% WATER 50 ML IV SCH (12:00)
[2019-10-07] MEDS: MIDODRINE HCL 5MG TABLET PO SCH ×2 (12:43→17:04)
[2019-10-07] MEDS: ENOXAPARIN 40MG/0.4ML SYR SUBCUT SCH (13:27)
[2019-10-07 18:11] LABS: HEMATOCRIT. 22.7 % (36.0-48.0); HEMOGLOBIN. 7.5 g/dL (12.0-16.0); MEAN CORPUSCULAR HEMOGLOBIN 31.2 pg (28.0-32.0); MEAN CORPUSCULAR VOLUME 94.7 fL (81.0-99.0); MEAN PLATELET VOLUME 8.6 fl (7.4-10.4); PLATELET 276 x1000/uL (130-400); RED CELL DISTRIBUTION WIDTH 13.4 % (11.6-14.6)
[2019-10-07 18:14] LABS: CHLORIDE 105 mEq/L (98-107)
[2019-10-07] MEDS: QUETIAPINE FUMARATE 50MG TABLET PO SCH (21:01)
[2019-10-07 22:15] LABS: PLATELET ESTIMATE NORMAL
[2019-10-08] VITALS (90 sets, daily range): BP systolic 38–156; BP diastolic 21–86
[2019-10-08] MEDS: INSULIN LISPRO 100 UNITS/ML SUBCUT SCH ×4 (00:29→23:23)
[2019-10-08] MEDS: BLOOD SUGAR DIAGNOSTIC STRIP TEST SCH ×5 (00:29→23:24)
[2019-10-08] MEDS: IPRATROPIUM/ALBUTEROL 0.5-3(2.5)MG/3ML NEB HHN SCH ×4 (03:15→20:53)
[2019-10-08] MEDS: FENTANYL CITRATE/PF 2,500 MCG in SODIUM CHLORIDE 0.9% 200 ML IV PRN ×2 (04:14→11:56)
[2019-10-08] MEDS: PHENYLEPHRINE 100 MG in DEXT 5% WATER 240 ML IV PRN ×2 (05:27→20:50)
[2019-10-08] MEDS: MIDAZOLAM HCL 100 MG in DEXT 5% WATER 80 ML IV PRN (05:30)
[2019-10-08] MEDS: DILTIAZEM HCL 30MG TABLET PO SCH ×3 (06:04→23:23)
[2019-10-08 08:12] LABS: BG BASE EXCESS -5.2 mmol/L (-2.0-2.0); BG CARBOXYHEMOGLOBIN 0.3 % (0.5-1.5); BG DEOXYHEMOGLOBIN 5.9 % (0.0-5.0); BG HCO3 ACT 20.7 mmol/L (22.0-26.0); BG METHEMOGLOBIN 0.3 % (0.0-1.5); BG OXYGEN SATURATION 94.1 % (92.0-98.5); BG OXYHEMOGLOBIN 93.5 % (94.0-97.0); BG PH 7.311 (7.350-7.450); BG PO2 73.5 mmHg (75.0-100.0); BG SAMPLE SITE RIGHT RADIAL; BG TIDAL VOLUME(mL) 450 mL; BG TOTAL HEMOGLOBIN 9.3 g/dL (12.0-18.0); BG VENT MODE VENT- PRVC; BG VENT RATE 28 set
[2019-10-08] MEDS: FAMOTIDINE 20MG/2ML VIAL IV SCH ×2 (09:32→20:47)
[2019-10-08] MEDS: MIDODRINE HCL 5MG TABLET PO SCH ×3 (09:32→17:00)
[2019-10-08] MEDS: DOCUSATE SODIUM SUGAR FREE 100MG/10ML UDC NG SCH ×2 (09:32→17:00)
[2019-10-08] MEDS ORDERED: LIDOCAINE HCL 1% 20ML VIAL (Pyxis) INJ ONE (12:07)
[2019-10-08] MEDS ORDERED: SODIUM BICARBONATE 4% (2.4MEQ) 5ML VIAL IV ONE (12:07)
[2019-10-08] MEDS ORDERED: DOPAMINE 800MG PREMIX (DOUBLE) 250 ML IV ONE (13:09)
[2019-10-08] MEDS: NOREPINEPHRINE 8 MG in SODIUM CHLORIDE 0.9% 242 ML IV PRN (13:41)
[2019-10-08] MEDS ORDERED: DOPAMINE 800MG PREMIX (DOUBLE) 250 ML IV PRN (14:15)
[2019-10-08] MEDS: QUETIAPINE FUMARATE 50MG TABLET PO SCH (20:47)
[2019-10-09] VITALS (104 sets, daily range): BP systolic 94–153; BP diastolic 49–83
[2019-10-09] MEDS: SODIUM CHLORIDE 0.9% 1,000 ML IV SCH (05:40)
[2019-10-09] MEDS: INSULIN LISPRO 100 UNITS/ML SUBCUT SCH ×4 (05:42→23:22)
[2019-10-09] MEDS: BLOOD SUGAR DIAGNOSTIC STRIP TEST SCH ×4 (05:42→23:23)
[2019-10-09] MEDS: DILTIAZEM HCL 30MG TABLET PO SCH ×4 (05:43→23:22)
[2019-10-09 06:10] LABS: BASOPHILS % 0.5 % (0.0-2.0); EOSINOPHILS % 1.3 % (0.0-5.0); HEMATOCRIT. 21.1 % (36.0-48.0); LYMPHOCYTES % 11.5 % (20.0-50.0); MEAN CORPUSCULAR HEMOGLOBIN 31.5 pg (28.0-32.0); MEAN CORPUSCULAR VOLUME 94.7 fL (81.0-99.0); MEAN PLATELET VOLUME 8.7 fl (7.4-10.4); MONOCYTES % 7.5 % (2.0-8.0); NEUTROPHILS % 79.2 % (40.0-76.0); PLATELET 215 x1000/uL (130-400); RED BLOOD CELL COUNT 2.23 mill/uL (4.2-5.4); RED CELL DISTRIBUTION WIDTH 13.2 % (11.6-14.6)
[2019-10-09] MEDS: IPRATROPIUM/ALBUTEROL 0.5-3(2.5)MG/3ML NEB HHN SCH ×2 (07:46→15:17)
[2019-10-09] MEDS: DOCUSATE SODIUM SUGAR FREE 100MG/10ML UDC NG SCH ×2 (09:00→18:29)
[2019-10-09] MEDS ORDERED: SODIUM CHLORIDE 0.9% 1,000 ML IV SCH (09:00)
[2019-10-09] MEDS: MIDODRINE HCL 5MG TABLET PO SCH ×3 (09:00→18:41)
[2019-10-09 09:16] LABS: BG BASE EXCESS -7.7 mmol/L (-2.0-2.0); BG CARBOXYHEMOGLOBIN 0.3 % (0.5-1.5); BG DEOXYHEMOGLOBIN 5.6 % (0.0-5.0); BG FRACTION INSPIRED OXYGEN 100; BG HCO3 ACT 19.6 mmol/L (22.0-26.0); BG METHEMOGLOBIN 0.6 % (0.0-1.5); BG OXYGEN SATURATION 94.3 % (92.0-98.5); BG OXYHEMOGLOBIN 93.5 % (94.0-97.0); BG PO2 84.8 mmHg (75.0-100.0); BG SAMPLE SITE RIGHT RADIAL; BG TIDAL VOLUME(mL) 450 mL; BG TOTAL HEMOGLOBIN 8.2 g/dL (12.0-18.0); BG VENT MODE VENT - PRVC; BG VENT RATE 28 set
[2019-10-09] MEDS ORDERED: SODIUM BICARBONATE 8.4% 1 MEQ/ML 50ML SYR IV NR (09:45)
[2019-10-09] MEDS: FAMOTIDINE 20MG/2ML VIAL IV SCH ×2 (12:42→20:06)
[2019-10-09] MEDS: MIDAZOLAM HCL 100 MG in DEXT 5% WATER 80 ML IV PRN ×2 (13:18→20:23)
[2019-10-09] MEDS: FENTANYL CITRATE/PF 2,500 MCG in SODIUM CHLORIDE 0.9% 200 ML IV PRN (18:33)
[2019-10-09] MEDS: QUETIAPINE FUMARATE 50MG TABLET PO SCH (20:06)
[2019-10-10] VITALS (29 sets, daily range): BP systolic 45–115; BP diastolic 18–72
[2019-10-10] MEDS: PHENYLEPHRINE 100 MG in DEXT 5% WATER 240 ML IV PRN (01:08)
[2019-10-10] MEDS ORDERED: VASOPRESSIN 20 UNIT in SODIUM CHLORIDE 0.9% 99 ML IV PRN (02:15)
[2019-10-10] MEDS ORDERED: EPINEPHRINE 10 MG in SODIUM CHLORIDE 0.9% 240 ML IV PRN (02:15)
== END 2019-10-10 02:23 | disposition expired | DRG 3 ==
LOC: ER 19:59 → EDBEDREQ 21:51 → EDBEDREQTM 21:51 → MICUSO 22:21 → 7WST 09-08 02:48 → UNDODISIN 09-11 13:05 → MICUSO 09-13 11:00
PROVIDERS: ADMIT Internal Medicine; ATTEND Internal Medicine
PROC: XW033E5 Introduction of Remdesivir Anti-infective into Peripheral Vein, Percutaneous Approach, New Technology Group 5 (ICD-10-PCS; 2019-09-11)
PROC: 5A1955Z Respiratory Ventilation, Greater than 96 Consecutive Hours (ICD-10-PCS; principal; 2019-09-18)
PROC: 02HV33Z Insertion of Infusion Device into Superior Vena Cava, Percutaneous Approach (ICD-10-PCS; 2019-09-18)
PROC: B548ZZA Ultrasonography of Superior Vena Cava, Guidance (ICD-10-PCS; 2019-09-18)
PROC: 0BH18EZ Insertion of Endotracheal Airway into Trachea, Via Natural or Artificial Opening Endoscopic (ICD-10-PCS; 2019-09-18)
PROC: 0B113F4 Bypass Trachea to Cutaneous with Tracheostomy Device, Percutaneous Approach (ICD-10-PCS; 2019-10-03)
PROC: 0GBJ3ZZ Excision of Thyroid Gland Isthmus, Percutaneous Approach (ICD-10-PCS; 2019-10-03)
PROC: 02H633Z Insertion of Infusion Device into Right Atrium, Percutaneous Approach (ICD-10-PCS; 2019-10-09)
PROC: B548ZZA Ultrasonography of Superior Vena Cava, Guidance (ICD-10-PCS; 2019-10-09)
PROC: 30233N1 Transfusion of Nonautologous Red Blood Cells into Peripheral Vein, Percutaneous Approach (ICD-10-PCS; 2019-10-09)
PROC: 5A12012 Performance of Cardiac Output, Single, Manual (ICD-10-PCS; 2019-10-09)
DX: A41.89 Other specified sepsis (principal); U07.1 COVID-19; J96.01 Acute respiratory failure with hypoxia; J12.89 Other viral pneumonia; N17.0 Acute kidney failure with tubular necrosis; R65.21 Severe sepsis with septic shock; J93.0 Spontaneous tension pneumothorax; D68.59 Other primary thrombophilia; G93.40 Encephalopathy, unspecified; N82.3 Fistula of vagina to large intestine; T79.7XXA Traumatic subcutaneous emphysema, initial encounter; I10 Essential (primary) hypertension; M19.90 Unspecified osteoarthritis, unspecified site; F14.90 Cocaine use, unspecified, uncomplicated; B34.9 Viral infection, unspecified; E11.9 Type 2 diabetes mellitus without complications; D72.810 Lymphocytopenia; E11.65 Type 2 diabetes mellitus with hyperglycemia; D64.9 Anemia, unspecified; X58.XXXA Exposure to other specified factors, initial encounter; I46.9 Cardiac arrest, cause unspecified; Y93.89 Activity, other specified; Y92.89 Other specified places as the place of occurrence of the external cause; Y99.8 Other external cause status; Z91.19 Patient's noncompliance with other medical treatment and regimen
CPT/HCPCS: 36415; 36600; 71045; 74177; 76856; 76937; 80048; 80053; 80305; 81003; 82270; 82375; 82728; 82805; 82962; 83036; 83605; 83615; 83880; 84145; 84478; 84484; 85025; 85379; 85384; 86140; 86850; 86900; 86920; 87070; 87635; 93005; 94002; 94003; 94640; 99291; C1725; C1760; J0692; J0696; J1100; J1265; J1650; J1815; J1940; J2060; J2250; J2370; J2543; J2704; J3010; J3490; J7030; J7050; J7060; J8540; P9016; Q0163; Q9957; Q9967; U0003-CS